=== PATIENT | female | born 1960 | race Caucasian/White ===

== ENCOUNTER → 2016-09-19 | Outpatient (CLI) | payer BC, MEDICARE ==
[2016-09-19 13:59] LABS: HEMATOCRIT 28.1 % (36.0-47.0); HEMOGLOBIN 9.6 g/dL (12.0-15.5); HGB HCT DIFFERENCE 0.7; MEAN CORPUSCULAR HEMOGLOBIN 29.3 pg (27.0-33.4); MEAN CORPUSCULAR VOLUME 86 fl (80-97); RED BLOOD COUNT 3.26 10^6/uL (3.72-5.28); WHITE BLOOD COUNT 7.3 10^3/uL (4.0-10.5)
[2016-09-19 14:05] LABS: APPEARANCE,URINE SLIGHTLY-CLOUDY; BILIRUBIN,URINE NEGATIVE (NEGATIVE); GLUCOSE, URINE 150 mg/dL (NEGATIVE); KETONES,URINE NEGATIVE (NEGATIVE); LEUKOCYTE ESTERASE,URINE NEGATIVE (NEGATIVE); NITRITE,URINE NEGATIVE (NEGATIVE); PROTEIN,URINE 100 mg/dL (NEGATIVE); URINE SPECIFIC GRAVITY 1.016; UROBILINOGEN,URINE NEGATIVE mg/dL (<2.0)
[2016-09-19 14:15] LABS: BLOOD UREA NITROGEN 40 mg/dL (7-20); CALCIUM 9.4 mg/dL (8.4-10.2); CARBON DIOXIDE 15 mmol/L (22-30); CREATININE RESULT 2.63 mg/dL (0.52-1.25); GLUCOSE 257 mg/dL (75-110); POTASSIUM 4.7 mmol/L (3.6-5.0)
[2016-09-19 14:28] LABS: CHLORIDE 108 mmol/L (98-107); SODIUM 143.7 mmol/L (137-145)
[2016-09-19 14:30] LABS: ANION GAP 21 (5-19)
== END ==
LOC: LAB 13:45
PROVIDERS: ATTEND Internal Medicine Nephrology
DX: I12.9 Hypertensive chronic kidney disease with stage 1 through stage 4 chronic kidney disease, or unspecified chronic kidney disease (principal); N18.4 Chronic kidney disease, stage 4 (severe); R80.9 Proteinuria, unspecified; R73.9 Hyperglycemia, unspecified
CPT/HCPCS: 36415; 80048; 81001; 85027

== ENCOUNTER → 2016-11-03 | Outpatient (CLI) | payer MEDICARE ==
[2016-11-03 13:26] LABS: HEMATOCRIT 29.4 % (36.0-47.0); HEMOGLOBIN 9.7 g/dL (12.0-15.5); HGB HCT DIFFERENCE -0.3; MEAN CORPUSCULAR HEMOGLOBIN 28.3 pg (27.0-33.4); MEAN CORPUSCULAR HGB CONC 32.9 g/dL (32.0-36.0); MEAN CORPUSCULAR VOLUME 86 fl (80-97); RED BLOOD COUNT 3.42 10^6/uL (3.72-5.28); WHITE BLOOD COUNT 9.6 10^3/uL (4.0-10.5)
== END ==
LOC: LAB 13:03
PROVIDERS: ATTEND Internal Medicine Nephrology
DX: I12.9 Hypertensive chronic kidney disease with stage 1 through stage 4 chronic kidney disease, or unspecified chronic kidney disease (principal); N18.4 Chronic kidney disease, stage 4 (severe); E11.9 Type 2 diabetes mellitus without complications; R80.9 Proteinuria, unspecified
CPT/HCPCS: 36415; 82728; 83540; 83550; 85027

== ENCOUNTER → 2017-01-23 | Outpatient (CLI) | payer MEDICARE ==
[2017-01-23 11:06] LABS: APPEARANCE,URINE CLEAR; BILIRUBIN,URINE NEGATIVE (NEGATIVE); GLUCOSE, URINE 50 mg/dL (NEGATIVE); KETONES,URINE NEGATIVE (NEGATIVE); LEUKOCYTE ESTERASE,URINE NEGATIVE (NEGATIVE); NITRITE,URINE NEGATIVE (NEGATIVE); PROTEIN,URINE 100 mg/dL (NEGATIVE); URINE SPECIFIC GRAVITY 1.012; UROBILINOGEN,URINE NEGATIVE mg/dL (<2.0)
[2017-01-23 11:18] LABS: HEMOGLOBIN 8.8 g/dL (12.0-15.5); HGB HCT DIFFERENCE 0.4; MEAN CORPUSCULAR HEMOGLOBIN 28.7 pg (27.0-33.4); MEAN CORPUSCULAR VOLUME 85 fl (80-97); RED BLOOD COUNT 3.08 10^6/uL (3.72-5.28); RED CELL DISTRIBUTION WIDTH 14.3 % (11.5-14.0); WHITE BLOOD COUNT 6.1 10^3/uL (4.0-10.5)
[2017-01-23 11:26] LABS: URINE CREATININE 87.8 mg/dL (15-278); URINE PROTEIN 148.1 mg/dL (<12)
[2017-01-23 11:51] LABS: ANION GAP 14 (5-19); BLOOD UREA NITROGEN 30 mg/dL (7-20); CALCIUM 9.3 mg/dL (8.4-10.2); CARBON DIOXIDE 19 mmol/L (22-30); CHLORIDE 109 mmol/L (98-107); CREATININE RESULT 2.48 mg/dL (0.52-1.25); GLUCOSE 189 mg/dL (75-110); POTASSIUM 4.3 mmol/L (3.6-5.0); SODIUM 142.3 mmol/L (137-145)
== END ==
LOC: LAB 10:45
PROVIDERS: ATTEND Internal Medicine Nephrology
DX: N18.4 Chronic kidney disease, stage 4 (severe) (principal); D64.9 Anemia, unspecified; R80.9 Proteinuria, unspecified; I10 Essential (primary) hypertension
CPT/HCPCS: 36415; 80048; 81001; 82570; 84156; 85027

== ENCOUNTER → 2017-03-29 | Outpatient (CLI) | payer MEDICARE ==
[2017-03-29 14:23] LABS: HEMATOCRIT 27.3 % (36.0-47.0); HEMOGLOBIN 9.1 g/dL (12.0-15.5); MEAN CORPUSCULAR HEMOGLOBIN 28.7 pg (27.0-33.4); MEAN CORPUSCULAR HGB CONC 33.3 g/dL (32.0-36.0); MEAN CORPUSCULAR VOLUME 86 fl (80-97); RED BLOOD COUNT 3.16 10^6/uL (3.72-5.28); RED CELL DISTRIBUTION WIDTH 15.1 % (11.5-14.0); WHITE BLOOD COUNT 7.8 10^3/uL (4.0-10.5)
[2017-03-29 14:38] LABS: ALANINE AMINOTRANSFERASE 24 U/L (9-52); ALBUMIN 4.2 g/dL (3.5-5.0); ALKALINE PHOSPHATASE 97 U/L (38-126); ASPARTATE AMINO TRANSFERASE 11 U/L (14-36); BILIRUBIN,DIRECT 0.4 mg/dL (0.0-0.4); BILIRUBIN,TOTAL 0.4 mg/dL (0.2-1.3); BLOOD UREA NITROGEN 33 mg/dL (7-20); CALCIUM 8.9 mg/dL (8.4-10.2); CREATININE RESULT 2.57 mg/dL (0.52-1.25); GLUCOSE 182 mg/dL (75-110); POTASSIUM 4.6 mmol/L (3.6-5.0); TOTAL PROTEIN 8.2 g/dL (6.3-8.2)
[2017-03-29 15:23] LABS: ANION GAP 19 (5-19); CARBON DIOXIDE 15 mmol/L (22-30); CHLORIDE 109 mmol/L (98-107)
== END ==
LOC: LAB 12:16
PROVIDERS: ATTEND Internal Medicine Nephrology
DX: E11.22 Type 2 diabetes mellitus with diabetic chronic kidney disease (principal); N18.4 Chronic kidney disease, stage 4 (severe); D64.9 Anemia, unspecified; R80.9 Proteinuria, unspecified
CPT/HCPCS: 36415; 80053; 82728; 83540; 83550; 85027

== ENCOUNTER 2017-05-04 10:48 | Emergency (ER) | payer MEDICARE ==
[2017-05-04] MEDS ORDERED: ONDANSETRON HCL INJ/PF 4 MG/2 ML SDV IV ONE (11:04)
[2017-05-04] MEDS ORDERED: MORPHINE SULFATE 10 MG/ML INJ IV ONE ×3 (11:05→14:32)
--- NOTE | 2017-05-04 11:09 | ER Document Report ---
ED Medical Screen (RME) - General Chief Complaint: Abdominal Pain Stated Complaint: ABDOMINAL PAIN Time Seen by Provider: 05/04/17 11:04 Notes: Patient is complaining of pain of the right abdomen which awakened her this morning around 4 AM. It has been constant and radiates around into the right back and flank region. She has not had any appetite or eaten any substantive amount of food since yesterday around lunchtime. No nausea, vomiting, or diarrhea. Last bowel movement was yesterday morning. No blood in stools. Denies UTI symptoms. Not aware of any fever. Patient had an episode of similar pain a couple of months ago, but it only lasted a very short time and went away and did not recur. Patient has no history of diverticulitis, colitis, regional enteritis, Crohn's disease, etc. Patient had surgery 4 years ago for bowel resection secondary to intussusception. PMH: Cholecystectomy. Still has her appendix. Has an umbilical hernia. TRAVEL OUTSIDE OF THE [place] IN LAST 30 DAYS: No - Related Data Allergies/Adverse Reactions: phenobarbital Allergy (Verified 05/04/17 10:57) Past Medical History - Social History Chew tobacco use (# tins/day): No Frequency of alcohol use: None Drug Abuse: None - Past Medical History Cardiac Medical History: Reports: Hx Hypercholesterolemia Endocrine Medical History: Reports: Hx Diabetes Mellitus Type 2 Renal/ Medical History: Denies: Hx Peritoneal Dialysis Past Surgical History: Reports: Hx Bowel Surgery - left side, Hx Cholecystectomy Physical Exam - Vital signs Vitals: Temp Pulse Resp BP Pulse Ox 97.2 F 91 22 H 180/84 H 100 05/04/17 10:54 05/04/17 10:54 05/04/17 10:54 05/04/17 10:54 05/04/17 10:54 Course - Vital Signs Vital signs: Temp Pulse Resp BP Pulse Ox 97.2 F 91 22 H 180/84 H 100 05/04/17 10:54 05/04/17 10:54 05/04/17 10:54 05/04/17 10:54 05/04/17 10:54
[2017-05-04 11:31] LABS: HEMATOCRIT 39.1 % (36.0-47.0); HEMOGLOBIN 13.2 g/dL (12.0-15.5); HGB HCT DIFFERENCE 0.5; MEAN CORPUSCULAR HEMOGLOBIN 29.4 pg (27.0-33.4); MEAN CORPUSCULAR HGB CONC 33.7 g/dL (32.0-36.0); MEAN CORPUSCULAR VOLUME 87 fl (80-97); RED BLOOD COUNT 4.49 10^6/uL (3.72-5.28); RED CELL DISTRIBUTION WIDTH 14.4 % (11.5-14.0)
[2017-05-04 11:32] LABS: APPEARANCE,URINE CLEAR; BILIRUBIN,URINE NEGATIVE (NEGATIVE); GLUCOSE, URINE >=500 mg/dL (NEGATIVE); KETONES,URINE NEGATIVE (NEGATIVE); LEUKOCYTE ESTERASE,URINE NEGATIVE (NEGATIVE); NITRITE,URINE NEGATIVE (NEGATIVE); PROTEIN,URINE >=500 mg/dL (NEGATIVE); URINE SPECIFIC GRAVITY 1.024; UROBILINOGEN,URINE NEGATIVE mg/dL (<2.0)
--- NOTE | 2017-05-04 11:38 | ER Document Report ---
ED GI/ - General Chief Complaint: Abdominal Pain Stated Complaint: ABDOMINAL PAIN Time Seen by Provider: 05/04/17 11:04 Mode of Arrival: Ambulatory Information source: Patient TRAVEL OUTSIDE OF THE [place] IN LAST 30 DAYS: No - HPI Patient complains to provider of: Abdominal pain Onset: This morning Timing/Duration: Sudden Quality of pain: Sharp Severity at maximum: Moderate Severity in ED: Moderate Pain Level: 3 Location: Right flank Associated symptoms: Nausea Exacerbated by: Denies Relieved by: Denies Similar symptoms previously: Yes Recently seen / treated by doctor: No Notes: 05/04/17 11:36 Patient is a 56 year ole female complaining of pain of the right abdomen which awakened her this morning around 4 AM. It has been constant and radiates around into the right back and flank region. She has not had any appetite or eaten any substantive amount of food since yesterday around lunchtime. She reports nausea but no vomiting or diarrhea. Last bowel movement was yesterday morning and normal. No blood in stools. Denies urinary or vaginal symptoms. Not aware of any fever. Patient had an episode of similar pain a couple of months ago, but it only lasted a very short time and went away and did not recur. Patient has no history of diverticulitis, colitis, regional enteritis, Crohn's disease, etc. Patient had surgery 4 years ago for bowel resection secondary to intussusception. PMH: Cholecystectomy. Still has her appendix. Has an umbilical hernia. - Related Data Allergies/Adverse Reactions: phenobarbital Allergy (Verified 05/04/17 10:57) Past Medical History - General Information source: Patient - Social History Smoking Status: Never Smoker Chew tobacco use (# tins/day): No Frequency of alcohol use: None Drug Abuse: None Family History: Reviewed & Not Pertinent - Past Medical History Cardiac Medical History: Reports: Hx Hypercholesterolemia Endocrine Medical History: Reports: Hx Diabetes Mellitus Type 2 Renal/ Medical History: Denies: Hx Peritoneal Dialysis Past Surgical History: Reports: Hx Bowel Surgery - left side, Hx Cholecystectomy Review of Systems - Review of Systems Constitutional: No symptoms reported EENT: No symptoms reported Cardiovascular: No symptoms reported Respiratory: No symptoms reported Gastrointestinal: See HPI Genitourinary: No symptoms reported Female Genitourinary: No symptoms reported Musculoskeletal: No symptoms reported Skin: No symptoms reported Hematologic/Lymphatic: No symptoms reported Neurological/Psychological: No symptoms reported -: Yes All other systems reviewed and negative Physical Exam - Vital signs Vitals: Temp Pulse Resp BP Pulse Ox 97.2 F 91 22 H 180/84 H 100 05/04/17 10:54 05/04/17 10:54 05/04/17 10:54 05/04/17 10:54 05/04/17 10:54 Interpretation: Normal - General General appearance: Appears well, Alert - HEENT Head: Normocephalic, Atraumatic Eyes: Normal Pupils: PERRL - Respiratory Respiratory status: No respiratory distress Chest status: Nontender Breath sounds: Normal Chest palpation: Normal - Cardiovascular Rhythm: Regular Heart sounds: Normal auscultation Murmur: No - Abdominal Inspection: Normal, Other - midline scar, reducible large umbilicaL hernia Distension: Distended Bowel sounds: Normal Tenderness: Tender - right upper quadrant Organomegaly: No organomegaly - Back Back: Normal, Nontender - Extremities General upper extremity: Normal inspection, Nontender, Normal color, Normal ROM , Normal temperature General lower extremity: Normal inspection, Nontender, Normal color, Normal ROM , Normal temperature, Normal weight bearing. No: Jose A's sign - Neurological Neuro grossly intact: Yes Cognition: Normal Orientation: AAOx4 [place] Coma Scale Eye Opening: Spontaneous Marilyn Coma Scale Verbal: Oriented [place] Coma Scale Motor: Obeys Commands Marilyn Coma Scale Total: 15 Speech: Normal Motor strength normal: LUE, RUE, LLE, RLE Sensory: Normal - Psychological Associated symptoms: Normal affect, Normal mood - Skin Skin Temperature: Warm Skin Moisture: Dry Skin Color: Normal Course - Re-evaluation Re-evalutation: 05/04/17 17:31 Patient was discussed with the hospitalist at [facility] Dr. Benny Mcnamara, who graciously accepts patient for transfer, however the transfer center states they are at surge capacity at the moment and do not anticipate a bed available immediately, however hopeful for one later this evening 05/04/17 20:27 Patient resting comfortably on the stretcher, no complaints at present time, vital signs are stable, she remains stable for transport to tertiary care center - Vital Signs Vital signs: Temp Pulse Resp BP Pulse Ox 97.5 F 87 18 174/74 H 100 05/04/17 14:26 05/04/17 14:26 05/04/17 14:26 05/04/17 14:26 05/04/17 14:26 - Laboratory Result Diagrams: 05/04/17 11:09 05/04/17 11:09 Laboratory results interpreted by me: 05/04/17 05/04/17 05/04/17 11:09 11:09 11:09 WBC 32.4 H* RDW 14.4 H Plt Count 492 H Seg Neuts % (Manual) 87 H Lymphocytes % (Manual) 7 L Abs Neuts (Manual) 28.2 H Abs Monocytes (Manual) 1.9 H VBG pH VBG HCO3 Sodium 134.0 L Potassium 5.8 H Chloride 97 L Carbon Dioxide 15 L Anion Gap 22 H BUN 44 H Creatinine 2.96 H Est GFR ( Amer) 20 L Est GFR (Non-Af Amer) 16 L Glucose 581 H* POC Glucose Lactic Acid Direct Bilirubin 0.5 H Alkaline Phosphatase 131 H Total Protein 9.6 H Lipase 52888.2 H Urine Protein >=500 H Urine Glucose (UA) >=500 H Urine Blood SMALL H 05/04/17 05/04/17 05/04/17 18:55 19:30 19:30 WBC RDW Plt Count Seg Neuts % (Manual) Lymphocytes % (Manual) Abs Neuts (Manual) Abs Monocytes (Manual) VBG pH 7.13 L* VBG HCO3 14.1 L Sodium Potassium Chloride Carbon Dioxide Anion Gap BUN Creatinine Est GFR ( Amer) Est GFR (Non-Af Amer) Glucose POC Glucose 411 H* Lactic Acid 3.1 H Direct Bilirubin Alkaline Phosphatase Total Protein Lipase Urine Protein Urine Glucose (UA) Urine Blood - Diagnostic Test Radiology reviewed: Image reviewed, Reports reviewed - EKG Interpretation by Me EKG shows normal: Sinus rhythm Rate: Normal Rhythm: NSR Carmen/QRS: LBBB Additional EKG results interpreted by me: 05/04/17 13:14 peaked T waves Critical Care Note - Critical Care Note Total time excluding time spent on procedures (mins): 75 Comments: Patient with profound leukocytosis, obstructive uropathy, acute renal failure, signs of sepsis, requiring transfer to tertiary care center Discharge - Discharge Clinical Impression: Obstructive uropathy Sepsis Qualifiers: Sepsis type: sepsis due to unspecified organism Qualified Code(s): A41.9 - Sepsis, unspecified organism Pancreatitis, acute Qualifiers: Pancreatitis type: unspecified pancreatitis type Acute pancreatitis complication: no infection or necrosis Qualified Code(s): K85.90 - Acute pancreatitis without necrosis or infection, unspecified Acute renal failure Qualifiers: Acute renal failure type: unspecified Qualified Code(s): N17.9 - Acute kidney failure, unspecified DKA (diabetic ketoacidoses) Qualifiers: Diabetes mellitus type: type 2 Diabetes mellitus complication detail: without coma Qualified Code(s): E13.10 - Other specified diabetes mellitus with ketoacidosis without coma Condition: Serious Disposition: [facility] Referrals: ELIZABETH ROMAN PA-C [Primary Care Provider] - Follow up as needed
[2017-05-04 11:44] LABS: ALANINE AMINOTRANSFERASE 18 U/L (9-52); ALBUMIN 4.6 g/dL (3.5-5.0); ALKALINE PHOSPHATASE 131 U/L (38-126); ASPARTATE AMINO TRANSFERASE 23 U/L (14-36); BILIRUBIN,DIRECT 0.5 mg/dL (0.0-0.4); BILIRUBIN,TOTAL 0.5 mg/dL (0.2-1.3); BLOOD UREA NITROGEN 44 mg/dL (7-20); CALCIUM 10.2 mg/dL (8.4-10.2); CHLORIDE 97 mmol/L (98-107); CREATININE RESULT 2.96 mg/dL (0.52-1.25); POTASSIUM 5.8 mmol/L (3.6-5.0); TOTAL PROTEIN 9.6 g/dL (6.3-8.2)
[2017-05-04 11:56] LABS: CARBON DIOXIDE 15 mmol/L (22-30)
[2017-05-04] MEDS ORDERED: NORMAL SALINE 1000 ML 1,000 ML IV PRN ×3 (12:01→14:47)
[2017-05-04 12:02] LABS: BASOPHILS % (MANUAL) 0 % (0-2); EOSINOPHILS % (MANUAL) 0 % (0-6); LYMPHOCYTES % (MANUAL) 7 % (13-45); TOTAL CELLS COUNTED 100
[2017-05-04 12:06] LABS: ANION GAP 22 (5-19); LIPASE 18011.2 U/L (23-300)
[2017-05-04 12:07] LABS: ANISOCYTOSIS SLIGHT
[2017-05-04 12:08] LABS: GLUCOSE 581 mg/dL (75-110)
[2017-05-04] MEDS ORDERED: PIPERACILLIN/TAZOBACTAM 3.375 GM VIAL IV ONE (12:14)
[2017-05-04] MEDS ORDERED: DEXTROSE 50%-WATER 25 GM/50 ML DISP.SYRIN IV ONE (13:13)
[2017-05-04] MEDS ORDERED: CALCIUM GLUCONATE 1000 MG/10 ML INJ IV ONE (13:13)
[2017-05-04] MEDS ORDERED: INSULIN REG, HUMAN 100 UNIT/ML 3 ML VIAL (PYX) IV ONE (13:13)
--- NOTE | 2017-05-04 13:53 | EKG REPORT ---
SEVERITY:- ABNORMAL ECG - SINUS RHYTHM PROBABLE LEFT ATRIAL ABNORMALITY LEFT BUNDLE BRANCH BLOCK : Confirmed by: Sander Jiménez MD 04-May-2017 13:53:25
[2017-05-04 14:28] LABS: PROTHROMBIN TIME 13.8 SEC (11.4-15.4)
[2017-05-04 14:29] LABS: PARTIAL THROMBOPLASTIN TIME 29.4 SEC (23.5-35.8)
[2017-05-04 14:46] LABS: WHITE BLOOD COUNT 32.4 10^3/uL (4.0-10.5)
[2017-05-04] MEDS ORDERED: NORMAL SALINE 100 ML with INSULIN REGULAR, HUMAN 100 UNIT IV PRN ×2 (17:00)
[2017-05-04] MEDS ORDERED: DEXTROSE 40% GEL 15 GM TUBE PO PRN ×2 (17:00)
[2017-05-04] MEDS ORDERED: GLUCAGON,HUMAN RECOMB 1 MG INJ IM PRN (17:00)
[2017-05-04] MEDS ORDERED: DEXTROSE 50%-WATER 25 GM/50 ML DISP.SYRIN IV PRN ×2 (17:00)
[2017-05-04] MEDS ORDERED: HYDROMORPHONE HCL INJ/PF 2 MG/ML AMPULE IV ONE ×2 (17:40→20:38)
[2017-05-04] MEDS ORDERED: INSULIN REG, HUMAN 100 UNIT/ML 3 ML VIAL (PYX) ONE (17:51)
[2017-05-04 19:50] LABS: VENOUS BLOOD BASE EXCESS -14.6 mmol/L; VENOUS BLOOD HCO3 14.1 mmol/L (20-32); VENOUS BLOOD PCO2 43.4 mmHg (35-63)
[2017-05-04 19:52] LABS: VENOUS BLOOD PH 7.13 (7.30-7.42)
[2017-05-04 23:25] VITALS: BP 176/78
--- NOTE | 2017-05-05 15:03 | RADIOLOGY REPORT (SQ) ---
EXAM DESCRIPTION: CHEST PA/LAT COMPLETED DATE/TIME: 05/04/2017, 1251 hours REASON FOR STUDY: Chest pain COMPARISON: No previous TECHNIQUE: PA and lateral chest LIMITATIONS: None FINDINGS: No focal pulmonary infiltrates. No pleural effusions. No pneumothorax. Borderline cardiomegaly. No hilar enlargement. Degenerative changes thoracic spine, bones osteoporotic. Clips right upper quadrant post cholecystectomy. IMPRESSION: No acute findings
--- NOTE | 2017-05-09 00:02 | RADIOLOGY REPORT (SQ) ---
EXAM DESCRIPTION: CT abdomen pelvis with oral contrast only COMPLETED DATE/TIME: 05/04/2017, 1348 hours REASON FOR STUDY: Right sided abdominal pain radiates to right flank COMPARISON: 11/17/2015 CT abdomen pelvis TECHNIQUE: CT scanning of the abdomen pelvis was performed without IV contrast. Patient drank oral contrast. Images were reviewed at lung bone and soft tissue windows with sagittal and coronal recons tructions. RADIATION DOSE: 9.8 mGy LIMITATIONS: None. FINDINGS: On axial image 77, and coronal image 49, a 4 to 5 mm calculus is present causing moderate to marked right hydronephrosis and hydroureter. There is right perinephric stranding. Tiny intraren al upper and lower pole less than 2 mm stones are present in the right kidney. This report was masr d to Dr. Dickens in the emergency room. Remainder of the study demonstrates that the lung bases are clear. Liver is unremarkable. Post chol ecystectomy. No splenomegaly. Adrenal glands, pancreas, left kidney unremarkable. Atherosclerotic aortoiliac calcification without aneurysm. No retroperitoneal adenopathy. Trace free pelvic fluid. Small postmenopausal female pelvic organs. There is oral contrast throughout the gastrointestinal tract without evidence of bowel obstruction. Appendix not identified. Sagittal and coronal reconstructions and bone windows demonstrate degenerative disc changes lower lum bar spine. IMPRESSION: Moderate to marked right hydronephrosis and hydroureter related to a right distal ureter al stone at the ureterovesical junction, 4 to 5 mm in diameter. TECHNICAL DOCUMENTATION: JOB ID: [id number] [employer]- All Rights Reserved
== END 2017-05-04 21:55 | disposition short-term general hospital (02) ==
LOC: ER 10:48
DX: A41.9 Sepsis, unspecified organism (principal); N13.2 Hydronephrosis with renal and ureteral calculous obstruction; K85.90 Acute pancreatitis without necrosis or infection, unspecified; N17.9 Acute kidney failure, unspecified; E13.10 Other specified diabetes mellitus with ketoacidosis without coma; K42.9 Umbilical hernia without obstruction or gangrene; I44.7 Left bundle-branch block, unspecified; R11.0 Nausea; Z90.49 Acquired absence of other specified parts of digestive tract; Z87.19 Personal history of other diseases of the digestive system; Z88.8 Allergy status to other drugs, medicaments and biological substances
CPT/HCPCS: 93005; 96376; 99285; 96361; 96375; 96365; 96367; 36415; 87040; 82962; 83690; 85025; 85610; 85730; 80053; 81001; 82803; 83605; 71020; 74176; 93010; J0610; J3490; J2270; J1170; A9270; J2405; J7030; J2543; J1815

== ENCOUNTER → 2017-05-31 | Outpatient (CLI) | payer MEDICARE ==
[2017-05-31 10:25] LABS: HEMATOCRIT 27.6 % (36.0-47.0); HEMOGLOBIN 9.3 g/dL (12.0-15.5); HGB HCT DIFFERENCE 0.3; MEAN CORPUSCULAR HEMOGLOBIN 29.2 pg (27.0-33.4); MEAN CORPUSCULAR HGB CONC 33.6 g/dL (32.0-36.0); MEAN CORPUSCULAR VOLUME 87 fl (80-97); RED BLOOD COUNT 3.18 10^6/uL (3.72-5.28); RED CELL DISTRIBUTION WIDTH 13.8 % (11.5-14.0); WHITE BLOOD COUNT 7.9 10^3/uL (4.0-10.5)
[2017-05-31 10:52] LABS: ANION GAP 16 (5-19); BLOOD UREA NITROGEN 35 mg/dL (7-20); CALCIUM 9.4 mg/dL (8.4-10.2); CARBON DIOXIDE 17 mmol/L (22-30); CHLORIDE 101 mmol/L (98-107); CREATININE RESULT 2.68 mg/dL (0.52-1.25); GLUCOSE 381 mg/dL (75-110); PHOSPHORUS 4.7 mg/dL (2.5-4.5); SODIUM 133.7 mmol/L (137-145)
== END ==
LOC: LAB 09:41
PROVIDERS: ATTEND Internal Medicine Nephrology
DX: I12.9 Hypertensive chronic kidney disease with stage 1 through stage 4 chronic kidney disease, or unspecified chronic kidney disease (principal); N18.4 Chronic kidney disease, stage 4 (severe); R80.9 Proteinuria, unspecified; D64.9 Anemia, unspecified; E11.9 Type 2 diabetes mellitus without complications
CPT/HCPCS: 36415; 80048; 82728; 83540; 83550; 83970; 84100; 85027

== ENCOUNTER → 2017-08-25 | Outpatient (CLI) | payer MEDICARE ==
[2017-08-25 11:35] LABS: HEMATOCRIT 28.9 % (36.0-47.0); HEMOGLOBIN 9.6 g/dL (12.0-15.5); HGB HCT DIFFERENCE -0.1; MEAN CORPUSCULAR HEMOGLOBIN 29.6 pg (27.0-33.4); MEAN CORPUSCULAR HGB CONC 33.2 g/dL (32.0-36.0); MEAN CORPUSCULAR VOLUME 89 fl (80-97); RED BLOOD COUNT 3.24 10^6/uL (3.72-5.28); RED CELL DISTRIBUTION WIDTH 15.1 % (11.5-14.0); WHITE BLOOD COUNT 10.8 10^3/uL (4.0-10.5)
[2017-08-25 11:58] LABS: BLOOD UREA NITROGEN 24 mg/dL (7-20); CALCIUM 8.9 mg/dL (8.4-10.2); CARBON DIOXIDE 15 mmol/L (22-30); CHLORIDE 108 mmol/L (98-107); CREATININE RESULT 2.08 mg/dL (0.52-1.25); GLUCOSE 193 mg/dL (75-110); PHOSPHORUS 3.3 mg/dL (2.5-4.5); POTASSIUM 4.4 mmol/L (3.6-5.0); SODIUM 142.8 mmol/L (137-145)
[2017-08-25 12:03] LABS: ANION GAP 20 (5-19)
[2017-08-25 14:51] LABS: APPEARANCE,URINE SLIGHTLY-CLOUDY; BILIRUBIN,URINE NEGATIVE (NEGATIVE); GLUCOSE, URINE 50 mg/dL (NEGATIVE); KETONES,URINE NEGATIVE (NEGATIVE); LEUKOCYTE ESTERASE,URINE NEGATIVE (NEGATIVE); NITRITE,URINE NEGATIVE (NEGATIVE); PROTEIN,URINE 100 mg/dL (NEGATIVE); URINE SPECIFIC GRAVITY 1.013; UROBILINOGEN,URINE NEGATIVE mg/dL (<2.0)
[2017-08-25 15:03] LABS: URINE PROTEIN 191.1 mg/dL (<12)
== END ==
LOC: LAB 11:15
PROVIDERS: ATTEND Internal Medicine Nephrology
DX: I12.9 Hypertensive chronic kidney disease with stage 1 through stage 4 chronic kidney disease, or unspecified chronic kidney disease (principal); N18.4 Chronic kidney disease, stage 4 (severe); D64.9 Anemia, unspecified; E11.9 Type 2 diabetes mellitus without complications; R80.9 Proteinuria, unspecified
CPT/HCPCS: 36415; 80048; 81001; 82570; 83970; 84100; 84156; 85027

== ENCOUNTER → 2017-11-17 | Outpatient (CLI) | payer MEDICARE ==
[2017-11-17 10:24] LABS: HEMATOCRIT 28.8 % (36.0-47.0); HEMOGLOBIN 9.4 g/dL (12.0-15.5); MEAN CORPUSCULAR HEMOGLOBIN 28.6 pg (27.0-33.4); MEAN CORPUSCULAR HGB CONC 32.7 g/dL (32.0-36.0); MEAN CORPUSCULAR VOLUME 87 fl (80-97); PLATELET COUNT 336 10^3/uL (150-450); RED BLOOD COUNT 3.29 10^6/uL (3.72-5.28); RED CELL DISTRIBUTION WIDTH 17.1 % (11.5-14.0); WHITE BLOOD COUNT 7.6 10^3/uL (4.0-10.5)
[2017-11-17 10:50] LABS: ANION GAP 17 (5-19); BLOOD UREA NITROGEN 32 mg/dL (7-20); CALCIUM 9.3 mg/dL (8.4-10.2); CARBON DIOXIDE 13 mmol/L (22-30); CHLORIDE 111 mmol/L (98-107); GLUCOSE 243 mg/dL (75-110); PHOSPHORUS 3.8 mg/dL (2.5-4.5); SODIUM 141.1 mmol/L (137-145)
== END ==
LOC: LAB 10:11
PROVIDERS: ATTEND Internal Medicine Nephrology
DX: N18.4 Chronic kidney disease, stage 4 (severe) (principal); R80.9 Proteinuria, unspecified; D64.9 Anemia, unspecified
CPT/HCPCS: 36415; 80048; 82728; 83540; 83550; 83970; 84100; 85027

== ENCOUNTER → 2017-12-29 | Outpatient (CLI) | payer MEDICARE ==
[2017-12-29 09:03] LABS: HEMATOCRIT 31.7 % (36.0-47.0); HEMOGLOBIN 10.5 g/dL (12.0-15.5); MEAN CORPUSCULAR HEMOGLOBIN 28.6 pg (27.0-33.4); MEAN CORPUSCULAR HGB CONC 33.1 g/dL (32.0-36.0); MEAN CORPUSCULAR VOLUME 86 fl (80-97); PLATELET COUNT 335 10^3/uL (150-450); RED BLOOD COUNT 3.66 10^6/uL (3.72-5.28); RED CELL DISTRIBUTION WIDTH 15.8 % (11.5-14.0); WHITE BLOOD COUNT 14.4 10^3/uL (4.0-10.5)
[2017-12-29 09:24] LABS: ANION GAP 17 (5-19); BLOOD UREA NITROGEN 36 mg/dL (7-20); CALCIUM 9.4 mg/dL (8.4-10.2); CARBON DIOXIDE 19 mmol/L (22-30); CHLORIDE 102 mmol/L (98-107); PHOSPHORUS 3.5 mg/dL (2.5-4.5); POTASSIUM 4.3 mmol/L (3.6-5.0); SODIUM 138.2 mmol/L (137-145)
[2017-12-29 09:36] LABS: GLUCOSE 416 mg/dL (75-110)
== END ==
LOC: LAB 08:49
PROVIDERS: ATTEND Internal Medicine Nephrology
DX: E11.22 Type 2 diabetes mellitus with diabetic chronic kidney disease (principal); I12.9 Hypertensive chronic kidney disease with stage 1 through stage 4 chronic kidney disease, or unspecified chronic kidney disease; N18.5 Chronic kidney disease, stage 5; R80.9 Proteinuria, unspecified; E87.2 Acidosis; N25.9 Disorder resulting from impaired renal tubular function, unspecified
CPT/HCPCS: 36415; 80048; 83970; 84100; 85027

== ENCOUNTER → 2018-03-22 | Outpatient (CLI) | payer MEDICARE ==
[2018-03-22 09:32] LABS: HEMATOCRIT 25.9 % (36.0-47.0); HEMOGLOBIN 8.8 g/dL (12.0-15.5); MEAN CORPUSCULAR HEMOGLOBIN 28.8 pg (27.0-33.4); MEAN CORPUSCULAR HGB CONC 34.2 g/dL (32.0-36.0); MEAN CORPUSCULAR VOLUME 84 fl (80-97); PLATELET COUNT 312 10^3/uL (150-450); RED BLOOD COUNT 3.06 10^6/uL (3.72-5.28); RED CELL DISTRIBUTION WIDTH 15.1 % (11.5-14.0); WHITE BLOOD COUNT 10.1 10^3/uL (4.0-10.5)
[2018-03-22 09:35] LABS: APPEARANCE,URINE CLEAR; BILIRUBIN,URINE NEGATIVE (NEGATIVE); COLOR,URINE STRAW; GLUCOSE, URINE >=500 mg/dL (NEGATIVE); KETONES,URINE NEGATIVE (NEGATIVE); LEUKOCYTE ESTERASE,URINE MODERATE (NEGATIVE); NITRITE,URINE NEGATIVE (NEGATIVE); PROTEIN,URINE 100 mg/dL (NEGATIVE); URINE SPECIFIC GRAVITY 1.013; UROBILINOGEN,URINE NEGATIVE mg/dL (<2.0)
[2018-03-22 09:51] LABS: ANION GAP 16 (5-19); BLOOD UREA NITROGEN 36 mg/dL (7-20); CALCIUM 9.5 mg/dL (8.4-10.2); CARBON DIOXIDE 21 mmol/L (22-30); CHLORIDE 102 mmol/L (98-107); GLUCOSE 367 mg/dL (75-110); PHOSPHORUS 3.7 mg/dL (2.5-4.5); POTASSIUM 4.6 mmol/L (3.6-5.0); SODIUM 139.2 mmol/L (137-145)
== END ==
LOC: LAB 09:10
PROVIDERS: ATTEND Internal Medicine Nephrology
DX: I12.9 Hypertensive chronic kidney disease with stage 1 through stage 4 chronic kidney disease, or unspecified chronic kidney disease (principal); N18.4 Chronic kidney disease, stage 4 (severe); E11.9 Type 2 diabetes mellitus without complications; R80.9 Proteinuria, unspecified; N25.0 Renal osteodystrophy
CPT/HCPCS: 36415; 80048; 81001; 83970; 84100; 85027

== ENCOUNTER → 2018-04-03 | Outpatient (CLI) | payer MEDICARE ==
[2018-04-03 09:41] LABS: IRON(TIBC) 66.5 ug/dL (37-170)
[2018-04-03 10:32] LABS: HEMATOCRIT 24.6 % (36.0-47.0); HEMOGLOBIN 8.2 g/dL (12.0-15.5); MEAN CORPUSCULAR HEMOGLOBIN 28.6 pg (27.0-33.4); MEAN CORPUSCULAR HGB CONC 33.4 g/dL (32.0-36.0); MEAN CORPUSCULAR VOLUME 86 fl (80-97); PLATELET COUNT 301 10^3/uL (150-450); RED BLOOD COUNT 2.87 10^6/uL (3.72-5.28); RED CELL DISTRIBUTION WIDTH 15.2 % (11.5-14.0); WHITE BLOOD COUNT 8.7 10^3/uL (4.0-10.5)
== END ==
LOC: LAB 09:03
PROVIDERS: ATTEND Internal Medicine Nephrology
DX: E11.22 Type 2 diabetes mellitus with diabetic chronic kidney disease (principal); N18.4 Chronic kidney disease, stage 4 (severe); D64.9 Anemia, unspecified
CPT/HCPCS: 36415; 82728; 83036; 83540; 83550; 85027

== ENCOUNTER 2018-04-26 12:38 | Outpatient (CLI) | payer MEDICARE ==
[~2018-04-26 12:38] MED LIST: FERRIC CARBOXYMALTOSE 750 MG in NORMAL SALINE 250 ML IV PRN; FERUMOXYTOL 510 MG in NORMAL SALINE 100 ML IV PRN; NORMAL SALINE 250 ML IV PRN
[2018-04-26 14:25] VITALS: BP 128/72
== END 2018-04-26 14:30 | disposition home or self-care (01) ==
LOC: II 12:38 → 5TH 13:24 → II 14:30
PROVIDERS: ATTEND Internal Medicine Nephrology
PROC: 3E033GC Introduction of Other Therapeutic Substance into Peripheral Vein, Percutaneous Approach (ICD-10-PCS; principal; 2018-04-26)
DX: Z76.89 Persons encountering health services in other specified circumstances (principal)
CPT/HCPCS: 96365; J7050; J1439; 96367; Q0138

== ENCOUNTER → 2018-05-14 | Outpatient (CLI) | payer MEDICARE ==
--- NOTE | 2018-05-14 15:48 | RADIOLOGY REPORT (SQ) ---
EXAM DESCRIPTION: BARIUM SWALLOW ESOPHAGUS COMPLETED DATE/TIME: 05/14/2018 10:09 am REASON FOR STUDY: DYSPHAGIA R13.10 DYSPHAGIA, UNSPECIFIED K21.9 GASTRO-ESOPHAGEAL REFLUX DISEASE W ITHOUT ESOPHAGITIS COMPARISON: None. TECHNIQUE: Under fluoroscopic guidance, patient ingested effervescent granules followed by thick and thin barium. Fluoroscopic spot images and routine radiographic images acquired and stored on PACS. 12 MM BARIUM TABLET GIVEN: The patient swallowed a 12 mm barium tablet which passed through the esoph antonietta into the stomach with minimal delay at the aortic knob. LIMITATIONS: None. FLUOROSCOPY TIME: FLUORO TIME: 2.52 minutes 7 images saved to PACS. FINDINGS: NEUROMUSCULAR COORDINATION OF SWALLOW: Normal. No aspiration. ESOPHAGEAL MOTILITY: Mild tertiary contractions seen in the distal esophagus. ESOPHAGEAL MUCOSA: Normal mucosa without masses or ulceration. GASTRO-ESOPHAGEAL JUNCTION: No hiatal hernia or reflux. NON-GI TRACT STRUCTURES: No significant finding. OTHER: No other significant finding. IMPRESSION: NORMAL DOUBLE CONTRAST BARIUM SWALLOW. RECOMMENDATION: None COMMENT: None Quality ID [id number]: Final reports for procedures using fluoroscopy that document radiation exposure kenneth petty, or exposure time and number of fluorographic images (if radiation exposure indices are not avail able) TECHNICAL DOCUMENTATION: JOB ID: [id number] [employer]- All Rights Reserved Reading location - IP/workstation name: [email or web address] [id number]
== END ==
LOC: RAD 08:57
PROVIDERS: ATTEND Internal Medicine Gastroenterology
DX: R13.10 Dysphagia, unspecified (principal); K21.9 Gastro-esophageal reflux disease without esophagitis
CPT/HCPCS: 74220

== ENCOUNTER → 2018-07-11 | Outpatient (CLI) | payer MEDICARE ==
[2018-07-11 11:19] LABS: HEMATOCRIT 28.9 % (36.0-47.0); HEMOGLOBIN 9.8 g/dL (12.0-15.5); MEAN CORPUSCULAR HEMOGLOBIN 29.6 pg (27.0-33.4); MEAN CORPUSCULAR HGB CONC 33.9 g/dL (32.0-36.0); MEAN CORPUSCULAR VOLUME 87 fl (80-97); PLATELET COUNT 336 10^3/uL (150-450); RED BLOOD COUNT 3.32 10^6/uL (3.72-5.28); RED CELL DISTRIBUTION WIDTH 15.5 % (11.5-14.0); WHITE BLOOD COUNT 7.9 10^3/uL (4.0-10.5)
[2018-07-11 11:44] LABS: ANION GAP 12 (5-19); BLOOD UREA NITROGEN 28 mg/dL (7-20); CALCIUM 9.4 mg/dL (8.4-10.2); CARBON DIOXIDE 21 mmol/L (22-30); CHLORIDE 108 mmol/L (98-107); GLUCOSE 132 mg/dL (75-110); IRON(TIBC) 45.6 ug/dL (37-170); POTASSIUM 4.6 mmol/L (3.6-5.0); SODIUM 140.7 mmol/L (137-145)
== END ==
LOC: LAB 10:58
PROVIDERS: ATTEND Internal Medicine Nephrology
DX: E11.22 Type 2 diabetes mellitus with diabetic chronic kidney disease (principal); N18.4 Chronic kidney disease, stage 4 (severe); R80.9 Proteinuria, unspecified; E87.5 Hyperkalemia; D64.9 Anemia, unspecified
CPT/HCPCS: 36415; 80048; 82728; 83540; 83550; 83970; 84100; 85027

== ENCOUNTER 2018-07-24 09:09 | Outpatient (CLI) | payer MEDICARE ==
[~2018-07-24 09:09] MED LIST changes: -FERUMOXYTOL 510 MG in NORMAL SALINE 100 ML IV PRN; -NORMAL SALINE 250 ML IV PRN
[2018-07-24 09:38] VITALS: BP 151/68
== END 2018-07-24 11:18 | disposition home or self-care (01) ==
LOC: II 09:09 → 5TH 09:21 → II 11:18
PROVIDERS: ATTEND Internal Medicine Nephrology
PROC: 3E033GC Introduction of Other Therapeutic Substance into Peripheral Vein, Percutaneous Approach (ICD-10-PCS; principal; 2018-07-24)
DX: D50.8 Other iron deficiency anemias (principal); N18.4 Chronic kidney disease, stage 4 (severe)
CPT/HCPCS: 96365; J7050; J1439

== ENCOUNTER 2018-09-29 12:11 | Inpatient (IN) | payer MEDICARE ==
[2018-09-29] MEDS ORDERED: CALCIUM GLUCONATE 1000 MG/10 ML INJ IV ONE (12:31)
[2018-09-29] MEDS ORDERED: NORMAL SALINE 1000 ML 1,000 ML IV ONE (12:33)
[2018-09-29 12:57] LABS: HEMATOCRIT 32.3 % (36.0-47.0); HEMOGLOBIN 10.5 g/dL (12.0-15.5); MEAN CORPUSCULAR HEMOGLOBIN 30.7 pg (27.0-33.4); MEAN CORPUSCULAR HGB CONC 32.5 g/dL (32.0-36.0); MEAN CORPUSCULAR VOLUME 95 fl (80-97); PLATELET COUNT 442 10^3/uL (150-450); RED BLOOD COUNT 3.42 10^6/uL (3.72-5.28); RED CELL DISTRIBUTION WIDTH 16.5 % (11.5-14.0); WHITE BLOOD COUNT 13.4 10^3/uL (4.0-10.5)
[2018-09-29 13:07] LABS: ALANINE AMINOTRANSFERASE 22 U/L (9-52); ALBUMIN 4.4 g/dL (3.5-5.0); ALKALINE PHOSPHATASE 105 U/L (38-126); ANION GAP 14 (5-19); ASPARTATE AMINO TRANSFERASE 18 U/L (14-36); BILIRUBIN,DIRECT 0.3 mg/dL (0.0-0.4); BILIRUBIN,TOTAL 0.4 mg/dL (0.2-1.3); BLOOD UREA NITROGEN 48 mg/dL (7-20); CARBON DIOXIDE 13 mmol/L (22-30); CHLORIDE 115 mmol/L (98-107); CREATINE KINASE 135 U/L (30-135); GLUCOSE 251 mg/dL (75-110); TOTAL PROTEIN 8.1 g/dL (6.3-8.2)
[2018-09-29 13:10] LABS: POTASSIUM 6.9 mmol/L (3.6-5.0)
[2018-09-29] MEDS ORDERED: INSULIN REG, HUMAN 100 UNIT/ML 3 ML VIAL (PYX) IV ONE (13:11)
[2018-09-29] MEDS ORDERED: DEXTROSE 50%-WATER 25 GM/50 ML DISP.SYRIN IV ONE ×2 (13:11→13:23)
[2018-09-29] MEDS ORDERED: SODIUM BICARBONATE 4.2% INJ (2.5 MEQ/5 ML) VIAL INJ ONE (13:13)
[2018-09-29] MEDS ORDERED: SODIUM BICARBONATE 8.4% INJ 10 MEQ/10 ML DISP.SYRIN IV ONE (13:17)
--- NOTE | 2018-09-29 13:17 | ER Document Report ---
ED Dizziness/Weakness - General Chief Complaint: Arrhythmia Stated Complaint: HEART RATE AND BLOOD PRESSURE ISSUE Time Seen by Provider: 09/29/18 12:31 Mode of Arrival: Ambulatory Information source: Patient Notes: History of Present Illness Chief Complaint: [syncope] [ 57 years old female on multiple medications including Cardizem 180, she forgot to take her medications yesterday therefore she took 2 tablets around 3:00 PM, prior to arrival she was having dizziness and one time she passed out. Briefly has been found on the floor and brought her to the ED. There were no head injury. The noted her pulse to be around 30 and blood pressure was 90 systole. Currently denies any headache denies any dizziness while sitting, denies any focal weakness numbness tingling sensation. Denies any fever chills or other constitutional symptoms] History obtained from [patient] Symptoms began:[ today] Onset: [abrupt] Timing: [lasted seconds, now recovered] Context: [As above ] Preceding symptoms: [none] Aggravating factors: [none] Relieving factors: [none] Denies injury/trauma Denies witness seizure activity, incontinence, or significant postictal period Denies serious bleeding Denies calf or leg swelling or pain Review of systems: All other systems negative as reviewed. CONSTITUTIONAL No fever. EYES No eye pain. ENT No URI symptoms, No sore throat, No ear pain. CARDIOVASCULAR No chest pain, No palpitations, No edema. RESPIRATORY No Cough, No SOB, No wheezing. GASTROINTESTINAL No abdominal pain, No vomiting, No diarrhea, No melena, No rectal bleeding. GENITOURINARY No UTI symptoms. MUSCULOSKELETAL No back pain. SKIN No Rash. NEUROLOGIC No Headache, No paralysis, No parathesias. Physical Exam CONSTITUTIONAL Vital signs reviewed, Comfortable, Alert and oriented X 3. HEAD Atraumatic, Normal cephalic. EYES No discharge from eye, Sclera are not injected, Extraocular muscles intact, Conjunctiva are normal.perrl,2mm, no photophobia, no nystagmus, fundi wnl. ENT Ears normal to inspection, Nose examination normal, Oropharynx normal, Mucous me mbranes pink, moist, normal in color. NECK Normal inspection, supple, No focal bony tenderness, Normal ROM, No jugular venous distention, No meningeal signs, no carotid bruit or tenderness. RESPIRATORY/CHEST Chest is non-tender, Breath sounds normal, No respiratory distress. CARDIOVASCULAR RRR, Heart sounds normal. ABDOMEN Abdomen is non-tender, No masses, Bowel sounds normal, No distension, No peritoneal signs. BACK Normal inspection. UPPER EXTREMITY Inspection normal, Non tender, No cyanosis/clubbing/edema. LOWER EXTREMITY Inspection normal, Non tender, No cyanosis/clubbing/edema, No calf tenderness. NEURO cn intact, no astreixis, no pronator drift, finger to nose testing coordinated bilaterally, 1+ deep tendon reflexes x 4 ext, down going babinski bilaterally, normal speech, Motor exam normal, Sensory exam normal. SKIN Skin is warm and dry, No rash. LYMPHATIC No adenopathy in neck. PSYCHIATRIC Normal affect. TRAVEL OUTSIDE OF THE [place] IN LAST 30 DAYS: No - HPI Notes: Dictated - Related Data Allergies/Adverse Reactions: phenobarbital Allergy (Verified 09/29/18 12:19) Past Medical History - Social History Smoking Status: Former Smoker Frequency of alcohol use: Rare Drug Abuse: None Lives with: Family Family History: Reviewed & Not Pertinent Patient has suicidal ideation: No Patient has homicidal ideation: No - Past Medical History Cardiac Medical History: Reports: Hx Hypercholesterolemia, Hx Hypertension Endocrine Medical History: Reports: Hx Diabetes Mellitus Type 2 Renal/ Medical History: Denies: Hx Peritoneal Dialysis Past Surgical History: Reports: Hx Bowel Surgery - left side, Hx Cholecystectomy Review of Systems - Review of Systems Notes: Dictated Physical Exam - Notes Notes: Dictated Course - Re-evaluation Re-evalutation: 09/29/18 13:14 Potassium was reported as 6.9, insulin 10 units plus D50 was given. As well as her bicarb. Previously she got a calcium chloride. 09/29/18 14:32 Repeat EKG showed heart rate of 46 bpm normal axis. No tall T waves noted. - Laboratory Result Diagrams: 09/29/18 12:22 09/29/18 12:22 Laboratory results interpreted by me: 09/29/18 09/29/18 12:22 12:22 WBC 13.4 H RBC 3.42 L Hgb 10.5 L Hct 32.3 L RDW 16.5 H Band Neutrophils % 1 L Abs Monocytes (Manual) 1.5 H Abs Basophils (Manual) 0.3 H Potassium 6.9 H* Chloride 115 H Carbon Dioxide 13 L BUN 48 H Creatinine 2.66 H Est GFR ( Amer) 22 L Est GFR (Non-Af Amer) 18 L Glucose 251 H Critical Care Note - Critical Care Note Total time excluding time spent on procedures (mins): 60 Comments: Management of bradycardia, hyperkalemia, overdose of Cardizem. Discussed the case with hospital service and admitted. Discharge - Discharge Clinical Impression: Hyperkalemia, Bradycardia, Cardizem overdose, Syncope and collapse Condition: Critical Disposition: ADMITTED INPATIENT Unit Admitted: IMCU Referrals: ELIZ FAGAN PA-C [Primary Care Provider] - Follow up as needed
[2018-09-29 13:19] LABS: ABSOLUTE LYMPHOCYTES# (MANUAL) 3.4 10^3/uL (0.5-4.7); ABSOLUTE MONOCYTES # (MANUAL) 1.5 10^3/uL (0.1-1.4); ABSOLUTE NEUTROPHILS# (MANUAL) 7.8 10^3/uL (1.7-8.2); BAND NEUTROPHILS % (MANUAL) 1 % (3-5); BASOPHILS % (MANUAL) 2 % (0-2); EOSINOPHILS % (MANUAL) 4 % (0-6); LYMPHOCYTES % (MANUAL) 25 % (13-45); MONOCYTES % (MANUAL) 11 % (3-13); SEGMENTED NEUTROPHILS % (MAN) 57 % (42-78); TOTAL CELLS COUNTED 100
[2018-09-29 13:20] LABS: ANISOCYTOSIS 1+
[2018-09-29 13:21] LABS: OVALOCYTES SLIGHT; PLATELET COMMENT ADEQUATE; POIKILOCYTOSIS SLIGHT; ROULEAUX 1+
[2018-09-29] MEDS ORDERED: SODIUM BICARBONATE 8.4% INJ 50 MEQ/50 ML DISP.SYRIN INJ ONE (13:30)
[2018-09-29] MEDS ORDERED: ONDANSETRON HCL INJ/PF 4 MG/2 ML SDV ONE (13:51)
--- NOTE | 2018-09-29 15:00 | RADIOLOGY REPORT (SQ) ---
EXAM DESCRIPTION: CHEST SINGLE VIEW COMPLETED DATE/TIME: 09/29/2018 2:47 pm REASON FOR STUDY: cough COMPARISON: 05/04/2017 and earlier EXAM PARAMETERS: NUMBER OF VIEWS: One view. TECHNIQUE: Single frontal radiographic view of the chest acquired. RADIATION DOSE: NA LIMITATIONS: None. FINDINGS: LUNGS AND PLEURA: No opacities, masses or pneumothorax. No pleural effusion. MEDIASTINUM AND HILAR STRUCTURES: No masses. Contour normal. HEART AND VASCULAR STRUCTURES: Heart normal in size. Normal vasculature. BONES: No acute findings. HARDWARE: None in the chest. OTHER: No other significant finding. IMPRESSION: NO ACUTE RADIOGRAPHIC FINDING IN THE CHEST. TECHNICAL DOCUMENTATION: JOB ID: [id number] [employer]- All Rights Reserved Reading location - IP/workstation name: [email or web address]
[2018-09-29] MEDS ORDERED: ACETAMINOPHEN 325 MG TABLET PO PRN (15:31)
[2018-09-29] MEDS ORDERED: NORMAL SALINE 1000 ML 1,000 ML IV PRN (15:31)
[2018-09-29 16:26] LABS: ANION GAP 12 (5-19); BLOOD UREA NITROGEN 49 mg/dL (7-20); CALCIUM 8.7 mg/dL (8.4-10.2); CARBON DIOXIDE 19 mmol/L (22-30); CHLORIDE 114 mmol/L (98-107); GLUCOSE 187 mg/dL (75-110); SODIUM 145.4 mmol/L (137-145)
[2018-09-29 16:34] LABS: POTASSIUM 5.3 mmol/L (3.6-5.0)
[2018-09-29] MEDS ORDERED: 1/2 NORMAL SALINE 500 ML IV PRN (17:00)
[2018-09-29] MEDS ORDERED: MAGNESIUM SULFATE/D5W 1 GM/100 ML RTUPB IV ONE (17:00)
[2018-09-29] MEDS ORDERED: ONDANSETRON 4 MG TAB.RAPDIS PO PRN (17:02)
[2018-09-29] MEDS ORDERED: TRAMADOL HCL 50 MG TABLET PO PRN (17:02)
[2018-09-29] MEDS: PATIROMER 8.4 GM SUSP PACKET PO SCH (17:19)
[2018-09-29] MEDS: DOCUSATE SODIUM 100 MG CAPSULE PO SCH (17:23)
[2018-09-29] MEDS: 1/2 NORMAL SALINE 1,000 ML IV PRN (20:27)
[2018-09-29] MEDS ORDERED: VANCOMYCIN HCL INJ 1000 MG VIAL IV ONE (21:07)
[2018-09-29] MEDS ORDERED: MORPHINE SULFATE 10 MG/ML INJ IV PRN (21:10)
[2018-09-29] MEDS ORDERED: VANCOMYCIN HCL INJ 1000 MG VIAL IV SCH ×2 (21:15→21:45)
[2018-09-29] MEDS ORDERED: ERTAPENEM SODIUM INJ 1 GM VIAL IV SCH (21:15)
[2018-09-29] MEDS ORDERED: ERTAPENEM SODIUM INJ 1 GM VIAL IV PRN (21:27)
[2018-09-29] MEDS ORDERED: VANCOMYCIN HCL INJ 1000 MG VIAL IV PRN (21:41)
--- NOTE | 2018-09-29 21:51 | EKG REPORT ---
SEVERITY:- ABNORMAL ECG - SINUS BRADYCARDIA LEFT BUNDLE BRANCH BLOCK : Confirmed by: Sander Jiménez MD 29-Sep-2018 21:50:37
--- NOTE | 2018-09-29 21:52 | EKG REPORT ---
SEVERITY:- ABNORMAL ECG - JUNCTIONAL RHYTHM SUPRAVENTRICULAR BIGEMINY LEFT BUNDLE BRANCH BLOCK : Confirmed by: Sander Jiménez MD 29-Sep-2018 21:51:55
[2018-09-29] MEDS ORDERED: ERTAPENEM SODIUM 0.5 GM in NORMAL SALINE 50 ML IV SCH (22:00)
[2018-09-29] MEDS: MORPHINE SULFATE 10 MG/ML INJ IV PRN (22:54)
[2018-09-29] MEDS: HEPARIN SOD (PORCINE) 5,000 UNIT/ML 1 ML SYRINGE SUBCUT SCH (22:56)
[2018-09-29] MEDS ORDERED: VANCOMYCIN HCL 1,250 MG in DEXTROSE 5%-WATER 250 ML IV ONE (23:00)
--- NOTE | 2018-09-29 23:17 | HISTORY AND PHYSICAL E ---
History and Physical NAME: RAYMOND PACHECO : 1960 AGE: 57Y ADMITTED: 09/29/2018 ROOM: ED03 CODE STATUS: DO NOT RESUSCITATE, DO NOT INTUBATE. PRIMARY CARE PROVIDER: Asad Holley. OUTPATIENT SPECIAL POLICE: Valente Arellano MD. CHIEF COMPLAINT: Low pulse and blood pressure. HISTORY OF PRESENT ILLNESS: The patient is a 57-year-old female with a past medical history of chronic kidney disease, stage 4, as well as diabetes mellitus type 2. The patient presented to the emergency department with a chief complaint of having a low heart rate as well as blood pressure. The patient states that she took numerous medications, including Cardizem 180. The patient is on a number of medicines every day. The patient stated she forgot to take her yesterday's dose; therefore, she took 2 tablets this morning around 3 a.m. Prior to arrival, the patient was noted to have dizziness and apparently had a very brief but witnessed syncopal episode. The patient was actually found on the floor by EMS. She denied striking her head. The patient's reported that her pulse had been around 30, and he checked her blood pressure and it was around 90 systolically. The patient denied any headache, but was dizzy once she woke up. She also admitted to feeling nauseous. The patient denied any focal weakness. No numbness or tingling. No fevers or chills. Upon presentation to the emergency department, the patient was found to have a heart rate of 30 and was treated with calcium gluconate for a calcium channel taj overdose, which was nonintentional. The patient was interestingly found to have a potassium of 6.9 and her creatinine was 2.66, where it appears her baseline is normally around the 2 range. Patient's glucose was 251. She had a slight white count at 13.4. The patient was found to be hypotensive with systolics in the 80s and 90s. Given these findings, the patient was referred to the hospital for admission and management. PAST MEDICAL HISTORY: Remarkable for: 1. Hyperlipidemia. 2. Hypertension. 3. Diabetes mellitus type 2. 4. Chronic kidney disease, stage 4. 5. Psoriatic arthritis. PAST SURGICAL HISTORY: Includes: 1. Bowel resection. 2. Cholecystectomy. 3. Right shoulder surgery. ALLERGIES: Include PHENOBARBITAL. HOME MEDICATIONS: Include: 1. Otezla 1 tablet, 30 mg, p.o. daily. 2. Calcitriol 0.25 mg p.o. daily. 3. Coreg 6.25 mg p.o. q.12 hours. 4. Cardizem extended release 240 mg p.o. b.i.d. 5. Glimepiride 1 mg p.o. daily. SOCIAL HISTORY: The patient currently resides at home with her , who is her default decision-maker, Mark, who may be reached at [phone]. The patient does have a history of tobacco use. She stopped smoking a couple of years ago. The patient denies any alcohol or illicit drug use. FAMILY MEDICAL HISTORY: Positive for diabetes and hypertension in multiple family members. The patient's parents are . The patient does have a sibling with hypertension. The patient does have children that are healthy. REVIEW OF SYSTEMS: CONSTITUTIONAL: The patient denies any fevers, chills. Admits to weakness and dizziness. No real change in appetite. INTEGUMENTARY: The patient denies any diaphoresis, rash, bruising or itching. HEENT: Denies any vision or hearing loss. No nasal drainage. No sore throat. CVS: Denies any chest pain or shortness of breath, edema or heart palpitations. RESPIRATORY: Denies any cough, sputum production or hemoptysis. GI: Denies any vomiting, diarrhea, abdominal pain, bloating, hematemesis, constipation, melena or hematochezia. Does admit to nausea with vomiting. : Denies any hematuria, pyuria or dysuria. MUSCULOSKELETAL: Patient does have chronic back pain. NEUROLOGICAL: No seizure, tremors or loss of consciousness. HEMATOLOGICAL: Denies any riya bleeding or easy bruising. ENDOCRINE: Denies any recent weight changes. Blood glucose has been relatively stable. PSYCHIATRIC: Denies suicidal or homicidal ideation. The rest of the review of the other organ systems is negative. PHYSICAL EXAMINATION: GENERAL: On examination, the patient is a well-developed, well-nourished 57-year-old female, who is awake, alert. She is oriented to person, place, time and situation. She does not appear to be in any acute distress. VITAL SIGNS: Temperature is 97.2, pulse is 44, respirations 12, blood pressure is 121/52, oxygen saturation 96% on room air. SKIN: Pale and dry. No rash. She is not diaphoretic. HEENT: Pupils equal, round, reactive to light and accommodation. Conjunctivae are pink. Sclerae are nonicteric. NECK: Trachea is midline. Neck is supple. No JVD. No palpable lymphadenopathy or thyromegaly. CVS: Heart is regular, bradycardic. No rub. CHEST: Clear and symmetrical, unlabored. ABDOMEN: Soft, nontender, nondistended. Bowel sounds are present. No palpable organomegaly. BACK: No CVA tenderness or sacral edema. EXTREMITIES: Dressings dry intact. Plus 1 pedal pulses noted bilaterally. PSYCHIATRIC: Appropriate affect. Pleasant mood. DIAGNOSTICS: Lab values are as follows: Hematology obtained on 09/29/2018 includes sodium of 142, potassium 6.9, chloride is 115, carbon dioxide is 13, BUN 48, creatinine 3.66, glucose 251, calcium is 9.0, bilirubin 0.4, AST 18, ALT 22, alk phos 25. CK 135. Troponin 0.012. Total protein 8.1, albumin 4.4. Chest x-ray obtained on 09/29/2018 reveals no acute radiographic finding of the chest. IMPRESSION AND PLAN: 1. Unintentional overdose of calcium channel taj. Will hold the patient's Cardizem for now. She has been treated with calcium gluconate. Will monitor the patient's blood pressure and heart rate and follow. 2. Hyperkalemia. The patient has been treated with dextrose and insulin. Unfortunately, Kayexalate is not available at this facility, but she has been hydrated. We will repeat stat chemistries now and follow. 3. Acute kidney injury on stage 4 chronic kidney disease. Patient's creatinine is still above baseline. Will hydrate the patient and follow chemistries. 4. Diabetes mellitus type 2. Will add sliding scale coverage and resume home medicines. 5. Hypotension, most likely secondary to #1. Has responded well to fluids. DISPOSITION: The patient is a DO NOT RESUSCITATE/DO NOT INTUBATE, as the patient states that she does want a natural . Pending patient's symptomatology and diagnostic findings, will reevaluate in the a.m. Will admit the patient to inpatient IMCU. The patient's expected length of stay should surpass 2 midnights. Time spent on this admission, including assessment, plan, physical examination, patient education, review of records is 70 minutes. DICTATING PHYSICIAN: ASAD BLUNT NP [id number] PHY#: [id number] ID: [id number] JOB#: [id number] ACCT: [id number] cc:KYAW VITALE M.D. > GOUVERNEUR HEALTHEnrique
[2018-09-30] MEDS ORDERED: ERTAPENEM SODIUM INJ 1 GM VIAL ONE (00:22)
[2018-09-30] MEDS ORDERED: ERTAPENEM SODIUM 0.5 GM in NORMAL SALINE 50 ML IV ONE (01:00)
[2018-09-30] MEDS ORDERED: CARVEDILOL 6.25 MG TABLET PO ONE (02:30)
[2018-09-30] MEDS: MORPHINE SULFATE 10 MG/ML INJ IV PRN ×6 (02:49→22:22)
[2018-09-30] MEDS ORDERED: VANCOMYCIN HCL INJ 500 MG VIAL ONE (03:01)
[2018-09-30] MEDS ORDERED: VANCOMYCIN HCL INJ 1000 MG VIAL ONE (03:01)
[2018-09-30] MEDS ORDERED: VANCOMYCIN HCL 1,250 MG in DEXTROSE 5%-WATER 250 ML IV ONE (03:15)
[2018-09-30 03:22] LABS: HEMATOCRIT 28.9 % (36.0-47.0); HEMOGLOBIN 9.6 g/dL (12.0-15.5); MEAN CORPUSCULAR HEMOGLOBIN 30.1 pg (27.0-33.4); MEAN CORPUSCULAR HGB CONC 33.1 g/dL (32.0-36.0); PLATELET COUNT 275 10^3/uL (150-450); RED BLOOD COUNT 3.18 10^6/uL (3.72-5.28); WHITE BLOOD COUNT 7.6 10^3/uL (4.0-10.5)
[2018-09-30 03:27] LABS: MEAN CORPUSCULAR VOLUME 91 fl (80-97)
[2018-09-30 03:53] LABS: ANION GAP 11 (5-19); BLOOD UREA NITROGEN 49 mg/dL (7-20); CALCIUM 9.2 mg/dL (8.4-10.2); CARBON DIOXIDE 19 mmol/L (22-30); CHLORIDE 114 mmol/L (98-107); GLUCOSE 104 mg/dL (75-110); POTASSIUM 5.5 mmol/L (3.6-5.0); SODIUM 143.9 mmol/L (137-145)
[2018-09-30] MEDS: DILTIAZEM HCL 60 MG TABLET PO SCH ×2 (05:27→22:20)
[2018-09-30] MEDS: HEPARIN SOD (PORCINE) 5,000 UNIT/ML 1 ML SYRINGE SUBCUT SCH ×3 (05:29→22:23)
[2018-09-30] MEDS ORDERED: GLUCAGON,HUMAN RECOMB 1 MG INJ IM PRN (09:28)
[2018-09-30] MEDS ORDERED: DEXTROSE 40% GEL 15 GM TUBE PO PRN ×4 (09:28→18:02)
[2018-09-30] MEDS ORDERED: DEXTROSE 50%-WATER 25 GM/50 ML DISP.SYRIN IV PRN ×4 (09:28→18:02)
[2018-09-30] MEDS ORDERED: HYDROCODONE PO PRN (09:29)
[2018-09-30] MEDS ORDERED: ACETAMINOPHEN PO PRN (09:29)
[2018-09-30] MEDS ORDERED: [UNRECOGNIZED DRUG - OTHER] PO PRN (09:29)
[2018-09-30] MEDS ORDERED: CARVEDILOL 6.25 MG TABLET PO SCH (10:00)
[2018-09-30] MEDS: DOCUSATE SODIUM 100 MG CAPSULE PO SCH ×2 (12:03→22:26)
[2018-09-30] MEDS: 1/2 NORMAL SALINE 1,000 ML IV PRN (12:21)
[2018-09-30] MEDS ORDERED: MAGNESIUM SULFATE/D5W 1 GM/100 ML RTUPB IV ONE (13:24)
--- NOTE | 2018-09-30 17:57 | PROGRESS NOTE E ---
Progress Note NAME: RAYMOND PACHECO : 1960 AGE: 57Y DATE: 09/30/2018 ROOM: 609 SUBJECTIVE: Patient was seen this morning on rounds. The patient states she feels a little better this morning. Does still have some pain. Wants her hydrocodone resumed. The patient denies any nausea, vomiting. No diarrhea. No shortness of breath, dizziness or chest pain. The patient has been afebrile. Her blood pressure has been in good range. Patient's heart rate has recovered nicely. The patient does not voice any other concerns at this time. BRIEF HISTORY: The patient is a 57-year-old female with a past medical history of chronic kidney disease stage 4 that is followed by Dr. Arellano, and foot wounds. The patient presented to the emergency department due to being found hypotensive and bradycardic at home. The patient's does check her blood pressure, heart daily, and the patient was found to be quite bradycardic. According to the patient, she realized she had forgotten to take her Cardizem and so she doubled up on her dosage, bringing her to the emergency department. The patient denies any intentional overdoses. No suicidal or homicidal ideation or so forth. The patient was treated with calcium gluconate, bicarbonate in the emergency department. Additionally, the patient was found to be hyperkalemic, which was treated with insulin, dextrose and the patient was hydrated overnight. REVIEW OF SYSTEMS: The rest of the review of systems is negative. MEDICATION: Reviewed. OBJECTIVE: GENERAL: Patient is a 57-year-old female who is awake, alert and oriented to person, place, time and situation. She is verbal, conversational and does not appear to be distressed. VITAL SIGNS: Temperature is 98.3, pulse 65, respirations 12, blood pressure 149/60, oxygen saturation 98% on room air. SKIN: Warm and dry. No rash. Not diaphoretic. HEENT: Pupils equal, round, reactive to light and accommodation. Conjunctivae pink. No evidence of JVP. CVS: Heart is regular. No rub. CHEST: Clear, symmetrical, unlabored. ABDOMEN: Soft, nontender. EXTREMITIES: Wrapped in appropriate dressing. PSYCHIATRIC: Appropriate affect, pleasant mood. DIAGNOSTICS: Lab values are as follows: Hematology obtained on 09/30/2018: WBCs are 7.6, hemoglobin is 9.6, hematocrit is 28.6, platelet count is 375,000. Chemistry obtained on 09/30/2018: Sodium is 143, potassium 5.5, chloride is 114, carbon dioxide 19, BUN 49, creatinine 2.40. Glucose 104. Calcium is 9.2, magnesium is 1.4. IMPRESSION AND PLAN: 1. UNINTENTIONAL CALCIUM CHANNEL NICOLE OVERDOSE. The patient's Cardizem has been resumed, given that her heart rate is increased. Patient was treated with calcium gluconate. Will continue to monitor closely though. 2. HYPERKALEMIA. This was treated with dextrose, insulin. Unfortunately, Kayexalate is not available at this facility at this time; however, the patient has been hydrated and her potassium is a steady state. No peak T waves noted on EKG. Will repeat chemistry in the a.m. and follow. 3. ACUTE KIDNEY INJURY ON STAGE 4 CHRONIC KIDNEY DISEASE. Continues to improve somewhat with hydration. 4. DIABETES MELLITUS TYPE 2. Will continue with sliding scale coverage as well as her home medication. 5. HYPOTENSION, SECONDARY TO #1. Responded well to fluids. 6. FOOT ULCERATIONS. The patient has been seen by Surgery. Will continue antibiotic coverage for now and follow. DISPOSITION: The patient is DO NOT RESUSCITATE/DO NOT INTUBATE. Pending patient's symptomatology and diagnostic findings, will reevaluate in the a.m. Time spent on this followup, including assessment, plan, physical examination, patient education, review of records was 35 minutes. DICTATING PHYSICIAN: ELIZ BLUNT NP [id number] PHY#: [id number] ID: [id number] JOB#: [id number] ACCT: [id number] cc: >
--- NOTE | 2018-09-30 18:01 | PDOC CONSULTATION ---
Consultation Consult Date: 09/30/18 Consult reason:: Bilateral foot wounds History of Present Illness Admission Date/PCP: 09/29/18 15:11 ELIZ FAGAN PA-C History of Present Illness: RAYMOND PACHECO is a 57 year old female seen at the request of the hospitalist service. The patient is a diabetic with known diabetic neuropathy. She has had previous surgeries/toe amputation in the past. The patient was admitted for h ypotension and dizziness, possibly related to unintentional overdose of medications. Patient has wounds present on her foot. She reports that her neuropathy inhibits her feeling. She reports that she did not know that the wounds were present. No one helps to care for her feet. She does not see a truck washer or wound care physician. The patient reports noticing a foul odor for the last several weeks emanating from her feet. She denies any purulent drainage, erythema, or significant amount of pain. Patient denies fevers, chills, nausea, vomiting, chest pain, shortness of breath, headache. She does report dizziness, orthostasis, malaise, and fatigue. Past Medical History Cardiac Medical History: Reports: Hyperlipidema, Hypertension Endocrine Medical History: Reports: Diabetes Mellitus Type 2 Psychiatric Medical History: Denies: Depression Past Surgical History Past Surgical History: Reports: Cholecystectomy Social History Lives with: Family Smoking Status: Former Smoker Cigarettes Packs Per Day: 1.5 Number of Years Smokin Last Time Smoked: 5 years ago Frequency of Alcohol Use: None Hx Prescription Drug Abuse: No - Advance Directive Resuscitation Status: Do Not Resuscitate Family History Family History: Reviewed & Not Pertinent Parental Family History Reviewed: Yes Children Family History Reviewed: Yes Sibling(s) Family History Reviewed.: Yes Medication/Allergy Home Medications: Carvedilol [Coreg 6.25 mg Tablet] 6.25 mg PO Q12 09/29/18 Clobetasol Propionate [Temovate Ointment] 1 applic TP BIDP PRN 09/29/18 Diltiazem HCl [Tiazac] 240 mg PO Q12 09/29/18 Gabapentin [Neurontin 300 mg Capsule] 300 mg PO TID 09/29/18 Glimepiride [Amaryl] 2 mg PO DAILY 09/29/18 Hydroxyzine HCl [Atarax 25 mg Tablet] 1 tab PO QID 09/29/18 Lisinopril [Prinivil] 20 mg PO DAILY 09/29/18 Ondansetron [Zofran Odt 4 mg Tablet] 8 mg PO Q6HP PRN 09/29/18 Tramadol HCl [Ultram 50 mg Tablet] 50 mg PO Q6HP PRN 09/29/18 Hydrocodone/Acetaminophen [[place] 7.5-325 mg Tablet] 1 tab PO Q6HP PRN 09/30/18 Allergies/Adverse Reactions: phenobarbital Allergy (Verified 09/29/18 12:19) Review of Systems Constitutional: PRESENT: fatigue. ABSENT: anorexia, chills, fever(s) Ears: ABSENT: hearing changes Nose, Mouth, and Throat: ABSENT: sore throat Cardiovascular: ABSENT: chest pain, palpitations Respiratory: ABSENT: cough, dyspnea Gastrointestinal: ABSENT: abdominal pain, hematemesis, hematochezia, nausea, vomiting Genitourinary: ABSENT: dysuria Musculoskeletal: ABSENT: back pain Integumentary: PRESENT: wounds - Bilateral foot wounds present.. ABSENT: rash Neurological: PRESENT: dizziness, syncope Psychiatric: ABSENT: anxiety, depression Endocrine: ABSENT: cold intolerance, heat intolerance Hematologic/Lymphatic: ABSENT: easy bleeding, easy bruising Physical Exam Vital Signs: Temp Pulse Resp BP Pulse Ox 98.5 F 60 16 149/60 H 97 09/30/18 14:00 09/29/18 22:20 09/30/18 15:00 09/30/18 12:17 09/30/18 14:00 Intake & Output 09/29/18 09/30/18 10/01/18 06:59 06:59 06:59 Intake Total 1360 1000 Output Total 1800 Balance -440 1000 Weight 73.8 kg General appearance: PRESENT: disheveled Head exam: PRESENT: atraumatic, normocephalic Eye exam: PRESENT: EOMI, PERRLA. ABSENT: scleral icterus Mouth exam: PRESENT: moist, neck supple Neck exam: ABSENT: meningismus, tenderness, thyromegaly, tracheal deviation Cardiovascular exam: PRESENT: RRR Pulses: PRESENT: normal radial pulses Vascular exam: PRESENT: pallor GI/Abdominal exam: PRESENT: soft. ABSENT: distended, firm, tenderness Rectal exam: PRESENT: deferred Extremities exam: PRESENT: other - Eschar to the left great toe. Necrotic area of the right lateral midfoot. Small amount of purulent drainage. Neurological exam: PRESENT: alert, awake, oriented to person, oriented to place, oriented to time, oriented to situation. ABSENT: CN II-XII grossly intact Psychiatric exam: ABSENT: agitated, anxious, depressed Focused psych exam: ABSENT: delusional Skin exam: ABSENT: cyanosis, jaundice Results Laboratory Results: 09/30/18 03:14 09/30/18 03:14 09/30/18 09/30/18 03:14 03:14 WBC 7.6 RBC 3.18 L Hgb 9.6 L Hct 28.9 L MCV 91 D MCH 30.1 MCHC 33.1 RDW 16.0 H Plt Count 275 Sodium 143.9 Potassium 5.5 H Chloride 114 H Carbon Dioxide 19 L Anion Gap 11 BUN 49 H Creatinine 2.40 H Est GFR ( Amer) 25 L Est GFR (Non-Af Amer) 21 L Glucose 104 Calcium 9.2 Magnesium 1.4 L 09/29/18 09/29/18 12:22 12:22 Creatine Kinase 135 Troponin I < 0.012 Impressions: Chest X-Ray 09/29/18 14:10 IMPRESSION: NO ACUTE RADIOGRAPHIC FINDING IN THE CHEST. Assessment & Plan - Diagnosis (1) Diabetic foot infection Is this a current diagnosis for this admission?: Yes - Plan Summary Plan Summary: This is a 57-year-old female with a significant diabetic foot infection. The patient has a large wound to the right lateral foot. There is evidence of necrosis at the lateral aspect with purulent drainage. I believe the patient has an area that will require debridement. There are several other eschars and areas of dry skin on bilateral feet. I will have the nursing staff wash her feet today with soap and water. Plan for debridement tomorrow. N.p.o. after midnight.
[2018-09-30] MEDS ORDERED: GLUCAGON,HUMAN RECOMB 1 MG INJ SUBCUT PRN (18:02)
[2018-09-30] MEDS: PATIROMER 8.4 GM SUSP PACKET PO SCH (19:01)
[2018-09-30] MEDS ORDERED: VANCOMYCIN HCL 1,000 MG in DEXTROSE 5%-WATER 250 ML IV SCH (22:00)
[2018-09-30] MEDS: CARVEDILOL 3.125 MG TABLET PO SCH (22:20)
[2018-09-30] MEDS: ERTAPENEM SODIUM 0.5 GM in NORMAL SALINE 50 ML IV SCH (22:21)
[2018-09-30] MEDS: HYDROCODONE/ACETAMINOPHEN 7.5-325 MG TABLET PO PRN (23:25)
[2018-10-01] MEDS ORDERED: DIPHENHYDRAMINE HCL 25 MG CAPSULE ONE (03:04)
[2018-10-01 03:52] LABS: HEMATOCRIT 29.9 % (36.0-47.0); HEMOGLOBIN 10.2 g/dL (12.0-15.5); MEAN CORPUSCULAR HEMOGLOBIN 30.7 pg (27.0-33.4); MEAN CORPUSCULAR VOLUME 90 fl (80-97); PLATELET COUNT 270 10^3/uL (150-450); RED BLOOD COUNT 3.32 10^6/uL (3.72-5.28); RED CELL DISTRIBUTION WIDTH 15.7 % (11.5-14.0); WHITE BLOOD COUNT 6.4 10^3/uL (4.0-10.5)
[2018-10-01] MEDS: DIPHENHYDRAMINE HCL 50 MG CAPSULE PO PRN ×2 (03:54→22:20)
[2018-10-01 04:11] LABS: ANION GAP 6 (5-19); BLOOD UREA NITROGEN 34 mg/dL (7-20); CALCIUM 9.6 mg/dL (8.4-10.2); CARBON DIOXIDE 23 mmol/L (22-30); CHLORIDE 111 mmol/L (98-107); GLUCOSE 127 mg/dL (75-110); POTASSIUM 5.3 mmol/L (3.6-5.0); SODIUM 140.4 mmol/L (137-145)
[2018-10-01] MEDS ORDERED: DIPHENHYDRAMINE HCL 50 MG/ML VIAL ONE (06:19)
[2018-10-01] MEDS: HYDROCODONE/ACETAMINOPHEN 7.5-325 MG TABLET PO PRN ×3 (06:20→22:32)
[2018-10-01] MEDS: CARVEDILOL 3.125 MG TABLET PO SCH ×2 (06:21→22:20)
[2018-10-01] MEDS: HEPARIN SOD (PORCINE) 5,000 UNIT/ML 1 ML SYRINGE SUBCUT SCH (06:21)
[2018-10-01] MEDS: DILTIAZEM HCL 60 MG TABLET PO SCH ×2 (06:22→22:19)
[2018-10-01] MEDS ORDERED: DIPHENHYDRAMINE HCL 50 MG/ML VIAL IV ONE (06:30)
[2018-10-01] MEDS ORDERED: LIDOCAINE 2% INJ-PF (20 MG/ML) 10 ML AMPUL ONE (09:20)
[2018-10-01] MEDS ORDERED: KETAMINE HCL INJ 500 MG/10 ML VIAL ONE (09:20)
[2018-10-01] MEDS ORDERED: DEXAMETHASONE SOD PHOSPHATE INJ 4 MG/1 ML VIAL ONE (09:20)
[2018-10-01] MEDS ORDERED: FENTANYL CITRATE INJ/PF 100 MCG/2 ML AMPUL ONE (09:20)
[2018-10-01] MEDS ORDERED: MIDAZOLAM 2 MG/2 ML INJ ONE (09:20)
[2018-10-01] MEDS ORDERED: ONDANSETRON HCL INJ/PF 4 MG/2 ML SDV ONE (09:21)
[2018-10-01] MEDS ORDERED: PROPOFOL INJ 200 MG/20 ML VIAL IV ONE (09:21)
[2018-10-01] MEDS ORDERED: LIDOCAINE 1% INJ-PF (10 MG/ML) 30 ML SDV ONE (09:30)
[2018-10-01] MEDS ORDERED: ONDANSETRON HCL INJ/PF 4 MG/2 ML SDV IV PRN (10:01)
[2018-10-01] MEDS ORDERED: PROMETHAZINE HCL INJ 25 MG/1 ML VIAL IV PRN ×2 (10:01)
[2018-10-01] MEDS ORDERED: FENTANYL CITRATE INJ/PF 100 MCG/2 ML AMPUL IV PRN ×3 (10:01)
[2018-10-01] MEDS ORDERED: MEPERIDINE HCL/PF INJ 25 MG/1 ML DISP.SYRIN IV PRN (10:01)
[2018-10-01] MEDS ORDERED: DIPHENHYDRAMINE HCL 50 MG/ML VIAL IV PRN (10:01)
[2018-10-01] MEDS ORDERED: MORPHINE SULFATE 10 MG/ML INJ IV PRN (10:01)
[2018-10-01] MEDS: FENTANYL CITRATE INJ/PF 100 MCG/2 ML AMPUL ONE ×2 (10:36→10:41)
--- NOTE | 2018-10-01 10:52 | Operative Report ---
Operative Report DATE OF SURGERY: 10/01/18 PREOPERATIVE DIAGNOSIS: Wound lateral aspect right foot, status post right fifth ray amputation; multiple smaller wounds right great toe left great toe left third toe: Overgrown toenails POSTOPERATIVE DIAGNOSIS: Same with soft tissue and probable chronic osteomyelitis of the right fifth tarsal bone OPERATION: 1. Excision of left great toe left third toe right great toe right third toe and right fourth toe nails. 2. Excisional debridement of left great toe and right great toe plantar surface stage IV pressure ulcers. 3. Revision of left third toe stage IV pressure ulcer. 5. Excisional debridement of chronic wound lateral aspect right foot, counterincision medial aspect right foot, irrigation and debridement of plantar surface right foot with drain placement; debridement of lateral aspect right fifth metatarsal bone. SURGEON: RUCHI DEWEY ANESTHESIA: GA TISSUE REMOVED OR ALTERED: Redundant and nails, skin, subcutaneous tissue bone fragments; right foot wound sent for culture and sensitivity. COMPLICATIONS: None ESTIMATED BLOOD LOSS: 20 cc INTRAOPERATIVE FINDINGS: See below PROCEDURE: Patient was seen in the preop holding area, taken to the main operating where general anesthesia was induced. Right foot and left foot both prepped and draped in sterile fashion. Surgical and surgical timeout were conducted. Left foot was significant for a stage IV pressure ulcer of the left great toe, plantar surface, as well as a stage IV dorsal surface third toe ulcer. Both of these ulcers were debrided down through the fascia, to the exposed tendon respectively. Vigorously. Perimeter hypertrophied callus excised with wire cu tter. The left great toenail as well as the left third great toenail were grossly grown, and word excisionally debrided with wire cutters. Surface of toenails which were still redundant in areas filed down with a respiratory file. Attention now directed to the right foot. Exfoliating skin over the dorsal and plantar surface of the foot debrided bluntly. Right great toenail similarly excised down to the reasonable amount of hypertrophied nail with wire cutters. Right third toenail also debrided with cutters. We now directed our attention to the lateral aspect of the right foot. Status p ost right great toe amputation. There was chronic scar tissue, granulation tissue, and exposed tendon laterally and along the plantar surface. All visible, nonviable skin and subcutaneous tissue granulation tissue, chronic peel, and nonviable tendon excisionally debrided with scissors and knife. Deep wound cultures sent for Gram stain culture and sensitivity. There was a chronic large pocket beneath the deep dermis of the plantar surface of the right foot which was broken up with the index finger. This extended approximately 6 cm caudad, 4 cm cephalad and medially to the medial aspect of the plantar surface of the mid right foot. A counterincision was made over the medial aspect of the foot, and a large Robin drain put into position and looped in a not tied. The right foot wound was irrigated with 1 L of saline. The lateral aspect of the right fifth metatarsal bone was debrided with a curette. We also used rongeurs to debride some of the exposed metatarsal bone. We got down to some bleeding tissue, and elected to stop at this point. Wounds dressed with Xeroform, 4 x 4's packed into the plantar surface of the right foot, and Kerlix rolls applied. Patient tolerated procedure, extubated, and taken to the recovery room in stable condition.
[2018-10-01] MEDS ORDERED: ACETAMINOPHEN 325 MG TABLET PO PRN (13:07)
[2018-10-01] MEDS: DOCUSATE SODIUM 100 MG CAPSULE PO SCH ×2 (13:25→22:19)
[2018-10-01] MEDS ORDERED: DIPHENHYDRAMINE HCL 50 MG CAPSULE PO ONE (15:00)
[2018-10-01] MEDS ORDERED: HYDROXYZINE PAMOATE 50 MG CAPSULE PO ONE (15:00)
[2018-10-01] MEDS: MORPHINE SULFATE 10 MG/ML INJ IV PRN (16:11)
[2018-10-01] MEDS: PATIROMER 8.4 GM SUSP PACKET PO SCH ×2 (17:42→18:55)
--- NOTE | 2018-10-01 17:45 | PDOC PROGRESS REPORT ---
Subjective Progress Note for:: 10/01/18 Subjective:: Patient was seen out of the ICU today. She experienced an episode of red man syndrome associated with IV vancomycin shortly after transferring to the general medical floor. She reports using Vistaril plus Benadryl at home for relief of itching. Only other alternative would be oral prednisone per her past medical experience. She went down for debridement today as well. At time of evaluation she is in good spirits. She is looking forward to lunch. She has no current complaints other than the itching. Denies fever or chills. No Complaints of pain Reason For Visit: HYPERKALEMIA,BRADYCARDIA Physical Exam Vital Signs: Temp Pulse Resp BP Pulse Ox 97 F L 62 14 143/63 H 94 10/01/18 11:25 10/01/18 11:25 10/01/18 11:25 10/01/18 11:25 10/01/18 11:25 Intake & Output 09/30/18 10/01/18 10/02/18 06:59 06:59 06:59 Intake Total 1360 1000 2750 Output Total 1800 2000 905 Balance -440 -1000 1845 Weight 73.8 kg 69.3 kg General appearance: PRESENT: no acute distress, cooperative Head exam: PRESENT: atraumatic, normocephalic Respiratory exam: PRESENT: other - Good airflow bilaterally. Cardiovascular exam: PRESENT: RRR, +S1, +S2 GI/Abdominal exam: PRESENT: other - Nontender. Soft. Bowel sounds present. Extremities exam: PRESENT: other - Bilateral lower extremity's. Bilateral feet bandaged. Neurological exam: PRESENT: alert, awake, oriented to person, oriented to place, oriented to time, oriented to situation, CN II-XII grossly intact. ABSENT: m otor sensory deficit Psychiatric exam: PRESENT: appropriate affect, normal mood. ABSENT: homicidal ideation, suicidal ideation Skin exam: PRESENT: other - Bilateral lower extremities bandaged. Results Laboratory Results: 10/01/18 03:43 10/01/18 03:43 10/01/18 10/01/18 03:43 03:43 WBC 6.4 RBC 3.32 L Hgb 10.2 L Hct 29.9 L MCV 90 MCH 30.7 MCHC 34.0 RDW 15.7 H Plt Count 270 Sodium 140.4 Potassium 5.3 H Chloride 111 H Carbon Dioxide 23 Anion Gap 6 BUN 34 H Creatinine 1.95 H Est GFR ( Amer) 32 L Est GFR (Non-Af Amer) 26 L Glucose 127 H Calcium 9.6 Magnesium 1.3 L 09/29/18 09/29/18 12:22 12:22 Creatine Kinase 135 Troponin I < 0.012 Impressions: Chest X-Ray 09/29/18 14:10 IMPRESSION: NO ACUTE RADIOGRAPHIC FINDING IN THE CHEST. Assessment & Plan - Diagnosis (1) Red man syndrome Is this a current diagnosis for this admission?: Yes (2) Bradycardia Is this a current diagnosis for this admission?: Yes (3) Diabetic foot infection Is this a current diagnosis for this admission?: Yes (4) Hyperkalemia Is this a current diagnosis for this admission?: Yes (5) Syncope and collapse Is this a current diagnosis for this admission?: Yes - Time Time Spent with patient: 25-34 minutes Medications reviewed and adjusted accordingly: Yes - Inpatient Certification Based on my medical assessment, after consideration of the patient's comorbidities, presenting symptoms, or acuity I expect that the services needed warrant INPATIENT care.: Yes I certify that my determination is in accordance with my understanding of Medicare's requirements for reasonable and necessary INPATIENT services [42 CFR 412.3e].: Yes - Plan Summary Plan Summary: 1. Bradycardia. Resolved on admission. Suspected due to excessive Cardizem. Given the elevated white blood cell count in the infection of the foot, could be related to sepsis. Unsure the reason of the Cardizem, however patient could be on have atrial fibrillation. 2. Diabetic foot infection. Status post debridement performed by surgery today. Continue with IV meropenem. IV vancomycin was stopped due to "red man" syndrome. She was ordered 50 of Benadryl +50 of Vistaril 3 times daily as needed for pruritus. She reports this combination works for at home. She tried 50 mg of Benadryl this morning and reported no results. Additional alternative would be prednisone, and would like to avoid giving her already poor wound healing. Right-sided abscess wound culture positive for protease vulgaris. Gram-positive cocci clusters. 3. CKD. Creatinine has trended down from 2.66-1.95 since admission. 4. Hyper kalemia. Continues to be an issue. Since her blood pressure is slightly elevated. Start 20 mg of Lasix daily times 2 days.. Kayexalate 15 mg twice daily times 2 days. 5. Low magnesium. IV replacement ordered. 6. Diabetes. Monitor blood glucose. History of peripheral neuropathy.
[2018-10-01] MEDS ORDERED: FUROSEMIDE 20 MG TABLET PO SCH (18:00)
[2018-10-01] MEDS ORDERED: SODIUM POLYSTYRENE SULFONATE 15 GM/60 ML PO SCH (22:00)
[2018-10-01] MEDS: GABAPENTIN 300 MG CAPSULE PO SCH (22:19)
[2018-10-01] MEDS: ERTAPENEM SODIUM 0.5 GM in NORMAL SALINE 50 ML IV SCH (22:32)
[2018-10-01] MEDS: MAGNESIUM SULFATE 1 GM/D5W 100 ML IV SCH ×2 (22:33→23:28)
[2018-10-01] MEDS: INSULIN LISPRO 100 UNIT/ML 3 ML VIAL SUBCUT PRN (23:28)
[2018-10-02] MEDS: DIPHENHYDRAMINE HCL 50 MG CAPSULE PO PRN (04:32)
[2018-10-02 05:28] LABS: ABSOLUTE LYMPHOCYTES (AUTO) 0.8 10^3/uL (0.5-4.7); ABSOLUTE MONOCYTES (AUTO) 0.4 10^3/uL (0.1-1.4); ABSOLUTE NEUT (AUTO) 8.4 10^3/uL (1.7-8.2); BASOPHILS % (AUTO) 0.5 % (0-2); EOSINOPHILS % (AUTO) 0.1 % (0-6); HEMATOCRIT 31.5 % (36.0-47.0); HEMOGLOBIN 10.5 g/dL (12.0-15.5); LYMPHOCYTES % (AUTO) 8.4 % (13-45); MEAN CORPUSCULAR HEMOGLOBIN 30.5 pg (27.0-33.4); MEAN CORPUSCULAR HGB CONC 33.5 g/dL (32.0-36.0); MEAN CORPUSCULAR VOLUME 91 fl (80-97); PLATELET COUNT 313 10^3/uL (150-450); RED BLOOD COUNT 3.45 10^6/uL (3.72-5.28); RED CELL DISTRIBUTION WIDTH 15.6 % (11.5-14.0); TOTAL CELLS COUNTED % (AUTO) 100 %; WHITE BLOOD COUNT 9.7 10^3/uL (4.0-10.5)
[2018-10-02 05:54] LABS: ANION GAP 13 (5-19); BLOOD UREA NITROGEN 40 mg/dL (7-20); CALCIUM 9.6 mg/dL (8.4-10.2); CARBON DIOXIDE 18 mmol/L (22-30); CHLORIDE 108 mmol/L (98-107); GLUCOSE 194 mg/dL (75-110); POTASSIUM 5.9 mmol/L (3.6-5.0); SODIUM 139.2 mmol/L (137-145)
[2018-10-02] MEDS: HYDROCODONE/ACETAMINOPHEN 7.5-325 MG TABLET PO PRN ×3 (06:15→18:41)
[2018-10-02] MEDS: MAGNESIUM SULFATE/D5W 1 GM/100 ML RTUPB IV SCH (06:57)
--- NOTE | 2018-10-02 09:01 | PDOC PROGRESS REPORT ---
Subjective Progress Note for:: 10/02/18 Reason For Visit: HYPERKALEMIA,BRADYCARDIA Physical Exam Vital Signs: Temp Pulse Resp BP Pulse Ox 97.8 F 89 16 175/63 H 100 10/02/18 08:40 10/02/18 08:40 10/02/18 08:40 10/02/18 08:40 10/02/18 08:40 Intake & Output 10/01/18 10/02/18 10/03/18 06:59 06:59 06:59 Intake Total 999 3587 Output Total 1999 1105 Balance -1000 2482 Weight 69.3 kg 77.1 kg Vascular exam: PRESENT: normal capillary refill - rt foot dressing removed, lateral aspect clean,some granulation left foot, two small ulcers with clean base, redressed with xeroform. Results Laboratory Results: 10/02/18 04:35 10/02/18 04:35 10/02/18 10/02/18 04:35 04:35 WBC 9.7 RBC 3.45 L Hgb 10.5 L Hct 31.5 L MCV 91 MCH 30.5 MCHC 33.5 RDW 15.6 H Plt Count 313 Seg Neutrophils % 87.0 H Lymphocytes % 8.4 L Monocytes % 4.0 Eosinophils % 0.1 Basophils % 0.5 Absolute Neutrophils 8.4 H Absolute Lymphocytes 0.8 Absolute Monocytes 0.4 Absolute Eosinophils 0.0 Absolute Basophils 0.0 Sodium 139.2 Potassium 5.9 H Chloride 108 H Carbon Dioxide 18 L Anion Gap 13 BUN 40 H Creatinine 2.13 H Est GFR ( Amer) 29 L Est GFR (Non-Af Amer) 24 L Glucose 194 H Calcium 9.6 09/29/18 09/29/18 12:22 12:22 Creatine Kinase 135 Troponin I < 0.012 Impressions: Chest X-Ray 09/29/18 14:10 IMPRESSION: NO ACUTE RADIOGRAPHIC FINDING IN THE CHEST. Assessment & Plan - Inpatient Certification Medical Necessity: Significant Comorbidiites Make Outpatient Treatment Too Risky, Need for IV Antibiotics - Plan Summary Plan Summary: s/p debridment of rt and left foot diabetic ulcers wounds clean will start bid dressing changes on rt and lt foot dressing changes
[2018-10-02] MEDS: DOCUSATE SODIUM 100 MG CAPSULE PO SCH ×2 (09:24→23:47)
[2018-10-02] MEDS: CARVEDILOL 3.125 MG TABLET PO SCH ×2 (09:24→23:47)
[2018-10-02] MEDS: DILTIAZEM HCL 60 MG TABLET PO SCH ×2 (09:24→23:46)
[2018-10-02] MEDS: GABAPENTIN 300 MG CAPSULE PO SCH ×2 (09:25→23:47)
[2018-10-02] MEDS: MORPHINE SULFATE 10 MG/ML INJ IV PRN ×4 (09:25→18:40)
[2018-10-02] MEDS: FUROSEMIDE 20 MG TABLET PO SCH (09:25)
--- NOTE | 2018-10-02 18:21 | PDOC PROGRESS REPORT ---
Subjective Progress Note for:: 10/02/18 Subjective:: This is a very pleasant 57 years old female patient admitted for hypotension and bradycardia after she inadvertently overdosed herself with Cardizem. Currently her blood pressure and heart rate has normalized. During her stay patient also found to have diabetic foot ulcer which is infected and her wound wound culture grew gram-positive cocci in cluster and Proteus vulgaris. She has been on ertapenem which I switched her to ceftriaxone since the organism is sensitive to this antibiotic. Morning I seen patient sitting on chair and enjoying her breakfast. She is awake alert oriented and she is not in pain or distress. Reason For Visit: HYPERKALEMIA,BRADYCARDIA Physical Exam Vital Signs: Temp Pulse Resp BP Pulse Ox 97.8 F 89 16 175/63 H 100 10/02/18 08:40 10/02/18 08:40 10/02/18 08:40 10/02/18 08:40 10/02/18 08:40 Intake & Output 10/01/18 10/02/18 10/03/18 06:59 06:59 06:59 Intake Total 1000 3587 Output Total 2000 1105 Balance -1000 2482 Weight 69.3 kg 77.1 kg General appearance: PRESENT: no acute distress Head exam: PRESENT: atraumatic Neck exam: ABSENT: carotid bruit, JVD, lymphadenopathy, thyromegaly Respiratory exam: PRESENT: clear to auscultation amber. ABSENT: rales, rhonchi, wheezes Cardiovascular exam: PRESENT: RRR. ABSENT: diastolic murmur, rubs, systolic murmur GI/Abdominal exam: PRESENT: normal bowel sounds, soft. ABSENT: distended, guarding, mass, organolmegaly, rebound, tenderness Extremities exam: PRESENT: other - Both feet are dressed Neurological exam: PRESENT: alert, awake, oriented to time, oriented to situation Results Laboratory Results: 10/02/18 04:35 10/02/18 04:35 10/02/18 10/02/18 04:35 04:35 WBC 9.7 RBC 3.45 L Hgb 10.5 L Hct 31.5 L MCV 91 MCH 30.5 MCHC 33.5 RDW 15.6 H Plt Count 313 Seg Neutrophils % 87.0 H Lymphocytes % 8.4 L Monocytes % 4.0 Eosinophils % 0.1 Basophils % 0.5 Absolute Neutrophils 8.4 H Absolute Lymphocytes 0.8 Absolute Monocytes 0.4 Absolute Eosinophils 0.0 Absolute Basophils 0.0 Sodium 139.2 Potassium 5.9 H Chloride 108 H Carbon Dioxide 18 L Anion Gap 13 BUN 40 H Creatinine 2.13 H Est GFR ( Amer) 29 L Est GFR (Non-Af Amer) 24 L Glucose 194 H Calcium 9.6 09/29/18 09/29/18 12:22 12:22 Creatine Kinase 135 Troponin I < 0.012 Impressions: Chest X-Ray 09/29/18 14:10 IMPRESSION: NO ACUTE RADIOGRAPHIC FINDING IN THE CHEST. Assessment & Plan - Diagnosis (1) Bradycardia Is this a current diagnosis for this admission?: Yes Plan: Has resolved (2) Diabetic foot infection Is this a current diagnosis for this admission?: Yes Plan: Continue wound care and ceftriaxone. (3) Stage 3 chronic kidney disease due to type 2 diabetes mellitus Is this a current diagnosis for this admission?: Yes Plan: We will avoid nephrotoxic agents will hydrate her cautiously. (4) Type 2 diabetes mellitus Is this a current diagnosis for this admission?: Yes Plan: Continue current regimen (5) Hypertension Qualifiers: Hypertension type: essential hypertension Qualified Code(s): I10 - Essential (primary) hypertension Is this a current diagnosis for this admission?: Yes Plan: Continue home med (6) Hyperlipidemia Qualifiers: Hyperlipidemia type: unspecified Qualified Code(s): E78.5 - Hyperlipidemia, unspecified Is this a current diagnosis for this admission?: Yes Plan: Continue current treatment.
[2018-10-02] MEDS: PATIROMER 8.4 GM SUSP PACKET PO SCH (20:24)
[2018-10-02] MEDS ORDERED: CEFTRIAXONE SODIUM 2,000 MG in DEXTROSE 5%-WATER 100 ML IV SCH (22:00)
[2018-10-02] MEDS: INSULIN LISPRO 100 UNIT/ML 3 ML VIAL SUBCUT PRN (22:13)
[2018-10-03] MEDS: HYDROCODONE/ACETAMINOPHEN 7.5-325 MG TABLET PO PRN ×2 (01:06→07:41)
[2018-10-03 05:49] LABS: ANION GAP 10 (5-19); BLOOD UREA NITROGEN 40 mg/dL (7-20); CALCIUM 9.1 mg/dL (8.4-10.2); CARBON DIOXIDE 18 mmol/L (22-30); CHLORIDE 112 mmol/L (98-107); GLUCOSE 175 mg/dL (75-110); POTASSIUM 5.1 mmol/L (3.6-5.0); SODIUM 139.9 mmol/L (137-145)
[2018-10-03] MEDS: INSULIN LISPRO 100 UNIT/ML 3 ML VIAL SUBCUT PRN ×2 (09:04→13:28)
[2018-10-03] MEDS ORDERED: CEFTRIAXONE 2 GM/D5W RTU 2 GM/50 ML RTUPB IV SCH (10:00)
[2018-10-03] MEDS ORDERED: SODIUM POLYSTYRENE SULFONATE 15 GM/60 ML PO ONE (10:05)
--- NOTE | 2018-10-03 10:13 | PDOC DISCHARGE SUMMARY ---
General - Admit/Disc Date/PCP Admission Date/Primary Care Provider: 09/29/18 15:11 ELIZ FAGAN PA-C Discharge Date: 10/03/18 - Discharge Diagnosis (1) Hyperkalemia Is this a current diagnosis for this admission?: Yes (2) Bradycardia Is this a current diagnosis for this admission?: Yes (3) Diabetic foot infection Is this a current diagnosis for this admission?: Yes (4) Stage 3 chronic kidney disease due to type 2 diabetes mellitus Is this a current diagnosis for this admission?: Yes (5) Type 2 diabetes mellitus Is this a current diagnosis for this admission?: Yes (6) Hypertension Is this a current diagnosis for this admission?: Yes (7) Hyperlipidemia Is this a current diagnosis for this admission?: Yes - Additional Information Resuscitation Status: Do Not Resuscitate Home Medications: Carvedilol [Coreg 6.25 mg Tablet] 6.25 mg PO Q12 09/29/18 Clobetasol Propionate [Temovate Ointment] 1 applic TP BIDP PRN 09/29/18 Diltiazem HCl [Tiazac] 240 mg PO Q12 09/29/18 Gabapentin [Neurontin 300 mg Capsule] 300 mg PO TID 09/29/18 Glimepiride [Amaryl] 2 mg PO DAILY 09/29/18 Hydroxyzine HCl [Atarax 25 mg Tablet] 1 tab PO QID 09/29/18 Lisinopril [Prinivil] 20 mg PO DAILY 09/29/18 Ondansetron [Zofran Odt 4 mg Tablet] 8 mg PO Q6HP PRN 09/29/18 Tramadol HCl [Ultram 50 mg Tablet] 50 mg PO Q6HP PRN 09/29/18 Hydrocodone/Acetaminophen [[place] 7.5-325 mg Tablet] 1 tab PO Q6HP PRN 09/30/18 History of Present Illness History of Present Illness: RAYMOND PACHECO is a 57 year old female on multiple medications including Cardizem 180, she forgot to take her medications yesterday therefore she took 2 tablets around 3:00 PM, prior to arrival she was having dizziness and one time she passed out. Briefly has been found on the floor and brought her to the ED. There were no head injury. The noted her pulse to be around 30 and b lood pressure was 90 systole. Currently denies any headache denies any dizziness while sitting, denies any focal weakness numbness tingling sensation. Denies any fever chills or other constitutional symptoms] Hospital Course Hospital Course: This is a very pleasant 57 years old female patient admitted for hypotension and bradycardia after she inadvertently overdosed herself with Cardizem. Currently her blood pressure and heart rate has normalized. At presentation patient also found to be hyperkalemic with potassium of 6.9 and today on the day of discharge her potassium is 5.1 and patient will be given a dose of Kayexalate. During her stay patient also found to have diabetic foot ulcer which is infected and her wound culture grew gram-positive cocci in cluster and Proteus vulgaris. She has been on ertapenem which I switched her to ceftriaxone since the organism is sensitive to this antibiotic. This morning I seen patient sitting at the bedside and chatting with her . She reports she feels much better. She is awake alert oriented. Her vital signs are within normal limits. Patient is stable enough to be discharged today. I will continue all her medication except her lisinopril which is contraindicated in patient with hyperkalemia. Physical Exam Vital Signs: Temp Pulse Resp BP Pulse Ox 98.1 F 70 16 139/64 H 97 10/03/18 07:39 10/03/18 07:39 10/03/18 07:39 10/03/18 07:39 10/03/18 07:39 Intake & Output 10/02/18 10/03/18 10/04/18 06:59 06:59 06:59 Intake Total 3587 1106 Output Total 1105 3300 Balance 2482 -2194 Weight 77.1 kg 77 kg General appearance: PRESENT: no acute distress Head exam: PRESENT: atraumatic Eye exam: PRESENT: conjunctiva pink Mouth exam: PRESENT: moist Respiratory exam: PRESENT: clear to auscultation amber. ABSENT: rales, rhonchi, wheezes Cardiovascular exam: PRESENT: RRR. ABSENT: diastolic murmur, rubs, systolic murmur GI/Abdominal exam: PRESENT: normal bowel sounds, soft. ABSENT: distended, guarding, mass, organolmegaly, rebound, tenderness Neurological exam: PRESENT: alert, awake, oriented to time, oriented to situation Psychiatric exam: PRESENT: normal mood Results Laboratory Results: 10/02/18 04:35 10/03/18 04:47 10/03/18 04:47 Sodium 139.9 Potassium 5.1 H Chloride 112 H Carbon Dioxide 18 L Anion Gap 10 BUN 40 H Creatinine 2.17 H Est GFR ( Amer) 28 L Est GFR (Non-Af Amer) 23 L Glucose 175 H Calcium 9.1 09/29/18 09/29/18 12:22 12:22 Creatine Kinase 135 Troponin I < 0.012 Impressions: Chest X-Ray 09/29/18 14:10 IMPRESSION: NO ACUTE RADIOGRAPHIC FINDING IN THE CHEST. Qualifiers - * PATIENT BEING DISCHARGED WITH ANY OF THE FOLLOWING DIAGNOSIS: No
[2018-10-03] MEDS: DILTIAZEM HCL 60 MG TABLET PO SCH (10:21)
[2018-10-03] MEDS: DOCUSATE SODIUM 100 MG CAPSULE PO SCH (10:22)
[2018-10-03] MEDS: GABAPENTIN 300 MG CAPSULE PO SCH (10:22)
[2018-10-03] MEDS: CARVEDILOL 3.125 MG TABLET PO SCH (10:22)
[2018-10-03] MEDS: FUROSEMIDE 20 MG TABLET PO SCH (10:22)
[2018-10-03] MEDS ORDERED: PATIROMER 8.4 GM SUSP PACKET PO ONE ×2 (11:30→14:00)
[2018-10-03 12:35] VITALS: BP 142/53
--- NOTE | 2018-10-03 13:11 | PDOC PROGRESS REPORT ---
Subjective Progress Note for:: 10/03/18 Subjective:: No c/o Reason For Visit: HYPERKALEMIA,BRADYCARDIA Physical Exam Vital Signs: Temp Pulse Resp BP Pulse Ox 98.1 F 70 16 148/62 H 97 10/03/18 11:55 10/03/18 11:55 10/03/18 11:55 10/03/18 11:55 10/03/18 11:55 Intake & Output 10/02/18 10/03/18 10/04/18 06:59 06:59 06:59 Intake Total 3587 1106 Output Total 1101 3300 Balance 2482 -2194 Weight 77.1 kg 77 kg General appearance: PRESENT: no acute distress Neurological exam: PRESENT: motor sensory deficit - both feet Skin exam: PRESENT: other - R foot= large, granulating wound lateral plantar aspect with Robin drain through it and exting other side of plantar surface medially, minimal serous drainage, no odor, stiffness of tissues; L foot= two small skin ulcerations to subcutaneous tissue (heel and toe) Results Laboratory Results: 10/02/18 04:35 10/03/18 04:47 10/03/18 04:47 Sodium 139.9 Potassium 5.1 H Chloride 112 H Carbon Dioxide 18 L Anion Gap 10 BUN 40 H Creatinine 2.17 H Est GFR ( Amer) 28 L Est GFR (Non-Af Amer) 23 L Glucose 175 H Calcium 9.1 09/29/18 09/29/18 12:22 12:22 Creatine Kinase 135 Troponin I < 0.012 Impressions: Chest X-Ray 09/29/18 14:10 IMPRESSION: NO ACUTE RADIOGRAPHIC FINDING IN THE CHEST. Assessment & Plan - Diagnosis (1) Diabetic foot infection Is this a current diagnosis for this admission?: Yes - Plan Summary Plan Summary: A/ S/p I&D right foot plantar abscess wtih [place] drain placement wound overall clean, granulating, no evidence of active infection P/ OK to discharge today by General Surgery viewpoint Daily NS wet-to-dry dressing changes right foot Right foot weight bearing on heel only Follow-up with General Surgery Clinic with IVY Best in 1 week Follow-up with home Health for daily home dressing changes Patient to change dressings when Home Health nurse cannot come to her house
== END 2018-10-03 14:12 | disposition home health service (06) | DRG 902 ==
LOC: ER 12:11 → EH 15:11 → ICU 21:38 → 3W 10-01 06:47
PROVIDERS: ADMIT Internal Medicine; ATTEND Internal Medicine
PROC: 0JDR3ZZ Extraction of Left Foot Subcutaneous Tissue and Fascia, Percutaneous Approach (ICD-10-PCS; 2018-10-01)
PROC: 0LBV0ZZ Excision of Right Foot Tendon, Open Approach (ICD-10-PCS; 2018-10-01)
PROC: 0JDQ0ZZ Extraction of Right Foot Subcutaneous Tissue and Fascia, Open Approach (ICD-10-PCS; 2018-10-01)
PROC: 0HDMXZZ Extraction of Right Foot Skin, External Approach (ICD-10-PCS; 2018-10-01)
PROC: 0HBRXZZ Excision of Toe Nail, External Approach (ICD-10-PCS; 2018-10-01)
PROC: 0JBR0ZZ Excision of Left Foot Subcutaneous Tissue and Fascia, Open Approach (ICD-10-PCS; principal; 2018-10-01 09:45)
DX: T46.1X1A Poisoning by calcium-channel blockers, accidental (unintentional), initial encounter (principal); L97.429 Non-pressure chronic ulcer of left heel and midfoot with unspecified severity; N18.4 Chronic kidney disease, stage 4 (severe); N17.9 Acute kidney failure, unspecified; G25.82 Stiff-man syndrome; L97.421 Non-pressure chronic ulcer of left heel and midfoot limited to breakdown of skin; I95.2 Hypotension due to drugs; Z66 Do not resuscitate; Y92.019 Unspecified place in single-family (private) house as the place of occurrence of the external cause; E87.5 Hyperkalemia; R00.1 Bradycardia, unspecified; B96.4 Proteus (mirabilis) (morganii) as the cause of diseases classified elsewhere; B95.62 Methicillin resistant Staphylococcus aureus infection as the cause of diseases classified elsewhere; E11.22 Type 2 diabetes mellitus with diabetic chronic kidney disease; I12.9 Hypertensive chronic kidney disease with stage 1 through stage 4 chronic kidney disease, or unspecified chronic kidney disease; E78.00 Pure hypercholesterolemia, unspecified; E11.621 Type 2 diabetes mellitus with foot ulcer; L97.519 Non-pressure chronic ulcer of other part of right foot with unspecified severity; L40.50 Arthropathic psoriasis, unspecified; E11.42 Type 2 diabetes mellitus with diabetic polyneuropathy; L60.0 Ingrowing nail; Z90.49 Acquired absence of other specified parts of digestive tract; L97.521 Non-pressure chronic ulcer of other part of left foot limited to breakdown of skin; Z87.891 Personal history of nicotine dependence; Z79.899 Other long term (current) drug therapy; Z88.8 Allergy status to other drugs, medicaments and biological substances; Z83.3 Family history of diabetes mellitus; Z82.49 Family history of ischemic heart disease and other diseases of the circulatory system
CPT/HCPCS: 01480; 36415; 71045; 80048; 80053; 82550; 82962; 83735; 84484; 85025; 85027; 87040; 87070; 87075; 87077; 87186; 87205; 93005; 93010; 96361; 96374; 96375; 99291; J0610; J0696; J1100; J1200; J1335; J1644; J1815; J2250; J2270; J2405; J2704; J3010; J3370; J3475; J3490; J7030; J7060

== ENCOUNTER → 2018-10-18 | Outpatient (CLI) | payer MEDICARE ==
[2018-10-18 11:29] LABS: ABSOLUTE BASOPHILS # (AUTO) 0.1 10^3/uL (0.0-0.2); ABSOLUTE EOSINOPHILS # (AUTO) 0.5 10^3/uL (0.0-0.6); ABSOLUTE LYMPHOCYTES (AUTO) 1.9 10^3/uL (0.5-4.7); ABSOLUTE MONOCYTES (AUTO) 1.1 10^3/uL (0.1-1.4); ABSOLUTE NEUT (AUTO) 6.1 10^3/uL (1.7-8.2); BASOPHILS % (AUTO) 1.2 % (0-2); EOSINOPHILS % (AUTO) 5.1 % (0-6); HEMATOCRIT 28.7 % (36.0-47.0); HEMOGLOBIN 9.6 g/dL (12.0-15.5); MEAN CORPUSCULAR HGB CONC 33.5 g/dL (32.0-36.0); MEAN CORPUSCULAR VOLUME 92 fl (80-97); MONOCYTES % (AUTO) 10.9 % (3-13); PLATELET COUNT 298 10^3/uL (150-450); RED BLOOD COUNT 3.11 10^6/uL (3.72-5.28); RED CELL DISTRIBUTION WIDTH 15.9 % (11.5-14.0); SEGMENTED NEUTROPHILS % (AUTO) 62.8 % (42-78); TOTAL CELLS COUNTED % (AUTO) 100 %; WHITE BLOOD COUNT 9.7 10^3/uL (4.0-10.5)
[2018-10-18 11:48] LABS: ALANINE AMINOTRANSFERASE 29 U/L (9-52); ALBUMIN 4.4 g/dL (3.5-5.0); ALKALINE PHOSPHATASE 166 U/L (38-126); ANION GAP 13 (5-19); ASPARTATE AMINO TRANSFERASE 21 U/L (14-36); BILIRUBIN,DIRECT 0.3 mg/dL (0.0-0.4); BILIRUBIN,TOTAL 0.5 mg/dL (0.2-1.3); BLOOD UREA NITROGEN 35 mg/dL (7-20); C-REACTIVE PROTEIN 47.3 mg/L (<10.0); CALCIUM 8.8 mg/dL (8.4-10.2); CARBON DIOXIDE 22 mmol/L (22-30); CHLORIDE 107 mmol/L (98-107); GLUCOSE 75 mg/dL (75-110); SODIUM 142.2 mmol/L (137-145); TOTAL PROTEIN 8.1 g/dL (6.3-8.2)
[2018-10-18 12:40] LABS: ERYTHROCYTE SEDIMENTATION RATE 120 mm/hr (0-30)
--- NOTE | 2018-10-18 15:01 | RADIOLOGY REPORT (SQ) ---
EXAM DESCRIPTION: FOOT BILATERAL 3 VIEWS COMPLETED DATE/TIME: 10/18/2018 2:47 pm REASON FOR STUDY: NON-PRS CHRONIC ULCER OTH PRT BILAT FOOT W FAT LAYER EXPOSED (L97.512)(L97. L97.51 2 NON-PRS CHRONIC ULCER OTH PRT RIGHT FOOT W FAT LAYER L97.522 NON-PRS CHRONIC ULCER OTH PRT LEFT F OOT W FAT LAYER E11.621 TYPE 2 DIABETES MELLITUS WITH FOOT ULCER COMPARISON: None. NUMBER OF VIEWS: Three views. TECHNIQUE: AP, lateral and oblique radiographic images acquired of the right and left foot. LIMITATIONS: None. FINDINGS: RIGHT MINERALIZATION: Overall normal bone density BONES: Diffuse periosteal new bone throughout the 5th metatarsal with bony resorption of the 5th meta tarsal head and proximal phalanx 5th toe. This most likely represents osteomyelitis. Plantar and do rsal calcaneal spurs are present. JOINTS: No effusions. SOFT TISSUES: Large soft tissue ulcer along the lateral aspect of the right foot, paralleling the 5th metatarsal. Diffuse forefoot soft tissue swelling without soft tissue gas OTHER: No other significant finding. LEFT MINERALIZATION: Overall normal bone density BONES: No acute fracture. Plantar and dorsal calcaneal spurs with fragmentation along the plantar ca lcaneal spurs from old healed fractures. No calcaneal or great toe periosteal new bone to suggest os teomyelitis JOINTS: No effusions. SOFT TISSUES: Calcaneal plantar ulcer without radiopaque foreign body or soft tissue gas. Small ulce r along the medial left great toe interphalangeal joint region. OTHER: No other significant finding. IMPRESSION: Ulcer right lateral foot with abnormal 5th metatarsal and 5th toe phalanges worrisome fo r osteomyelitis. Left foot plantar and great toe ulcers without bony changes to suggest osteomyelitis TECHNICAL DOCUMENTATION: JOB ID: [id number] [employer]- All Rights Reserved Reading location - IP/workstation name: [email or web address]
--- NOTE | 2018-10-21 13:38 | XCELERA REPORT ---
[address] [address] Lower Extremity Arterial Evaluation Name: RAYMOND PACHECO Age: 57 yrs Gender: Female : 1960 Patient Status: Outpatient Patient Location: Study Date: 10/18/2018 03:03 PM Procedure: A color flow and duplex scan of the lower extremity arteries was performed bilaterally with velocity and waveform anaylsis. Ankle brachial indicies performed. Reason For Study: ULCER Ordering Physician: MARCELINA NEVILLE Performed By: Tiny Romero Measurements and Calculations Right Left QUENCHER OPERATOR PSV 258.2 177.8 cm/sec Prox PFA PSV -427.8 -160.1cm/sec Prox SFA PSV -134.8 169.9 cm/sec Mid SFA PSV -153.2 -438.7cm/sec Dist SFA PSV -245.1 -104.8cm/sec Prox Pop A PSV 107.1 172.0 cm/sec Dist CHECO PSV 99.7 70.5 cm/sec Prox DINING ROOM SERVER PSV 34.2 cm/sec Dist DINING ROOM SERVER PSV 39.0 32.3 cm/sec Alex Pedis PSV 68.8 72.7 cm/sec Right Side Arterial Evaluation Normal velocity and triphasic waveforms noted in the Common Femoral artery. Triphasic with greater than 2 x velocity in the Deep Femoral, indicating high grade stenosis. Biphasic with normal velocity to the infrageniculate vessels . Ankle Brachial index 0.79. Left Side Arterial Evaluation Normal velocity and triphasic waveforms noted in the Common Femoral artery. Greater than 2 x increase in velocity in the Femoral, indicating high grade stenosis. Biphasic with normal velocity form Popliteal to the Anterior Tibial. Monophasic with low normal velocity in the Posterior Tibial artery . Ankle Brachial index 0.57. Interpretation Summary Moderate hemodynamically significant lesions in the right lower extremity only, on duplex imaging, at rest. More complex multilevel disease on the left, in the Femoral and Posterior tibial arteries. : MARCELINA NEVILLE > [employer]re[employer]
== END ==
LOC: SP 14:14
PROVIDERS: ATTEND Nurse Practitioner
DX: E11.621 Type 2 diabetes mellitus with foot ulcer (principal); L97.512 Non-pressure chronic ulcer of other part of right foot with fat layer exposed; L97.522 Non-pressure chronic ulcer of other part of left foot with fat layer exposed
CPT/HCPCS: 36415; 80053; 83036; 85025; 85652; 86140; 93925

== ENCOUNTER → 2018-11-14 | Outpatient (CLI) | payer MEDICARE ==
[2018-11-14 10:28] LABS: ABSOLUTE BASOPHILS # (AUTO) 0.1 10^3/uL (0.0-0.2); ABSOLUTE EOSINOPHILS # (AUTO) 0.5 10^3/uL (0.0-0.6); ABSOLUTE LYMPHOCYTES (AUTO) 2.3 10^3/uL (0.5-4.7); ABSOLUTE MONOCYTES (AUTO) 1.1 10^3/uL (0.1-1.4); ABSOLUTE NEUT (AUTO) 5.1 10^3/uL (1.7-8.2); BASOPHILS % (AUTO) 1.4 % (0-2); EOSINOPHILS % (AUTO) 5.6 % (0-6); HEMATOCRIT 29.6 % (36.0-47.0); HEMOGLOBIN 9.9 g/dL (12.0-15.5); LYMPHOCYTES % (AUTO) 25.4 % (13-45); MEAN CORPUSCULAR HEMOGLOBIN 30.8 pg (27.0-33.4); MEAN CORPUSCULAR HGB CONC 33.5 g/dL (32.0-36.0); MEAN CORPUSCULAR VOLUME 92 fl (80-97); MONOCYTES % (AUTO) 11.6 % (3-13); PLATELET COUNT 357 10^3/uL (150-450); RED BLOOD COUNT 3.22 10^6/uL (3.72-5.28); RED CELL DISTRIBUTION WIDTH 15.4 % (11.5-14.0); TOTAL CELLS COUNTED % (AUTO) 100 %; WHITE BLOOD COUNT 9.1 10^3/uL (4.0-10.5)
[2018-11-14 11:00] LABS: ALANINE AMINOTRANSFERASE 20 U/L (9-52); ALBUMIN 3.9 g/dL (3.5-5.0); ALKALINE PHOSPHATASE 138 U/L (38-126); ANION GAP 15 (5-19); ASPARTATE AMINO TRANSFERASE 17 U/L (14-36); BILIRUBIN,DIRECT 0.3 mg/dL (0.0-0.4); BILIRUBIN,TOTAL 0.3 mg/dL (0.2-1.3); BLOOD UREA NITROGEN 36 mg/dL (7-20); C-REACTIVE PROTEIN 35.1 mg/L (<10.0); CALCIUM 9.2 mg/dL (8.4-10.2); CARBON DIOXIDE 14 mmol/L (22-30); CHLORIDE 111 mmol/L (98-107); GLUCOSE 100 mg/dL (75-110); POTASSIUM 5.4 mmol/L (3.6-5.0); SODIUM 140.2 mmol/L (137-145); TOTAL PROTEIN 7.4 g/dL (6.3-8.2)
[2018-11-14 11:09] LABS: ERYTHROCYTE SEDIMENTATION RATE 107 mm/hr (0-30)
--- NOTE | 2018-11-14 13:24 | RADIOLOGY REPORT (SQ) ---
EXAM DESCRIPTION: FOOT BILATERAL 3 VIEWS COMPLETED DATE/TIME: 11/14/2018 10:53 am REASON FOR STUDY: NON-PRESSURE ULCER OF OTHER PART OF RIGHT/LEFT FOOT (L97.512/L97.522) L97.512 NON -PRS CHRONIC ULCER OTH PRT RIGHT FOOT W FAT LAYER COMPARISON: 10/18/2018 NUMBER OF VIEWS: Three views. TECHNIQUE: AP, lateral and oblique radiographic images acquired of the right and left foot. LIMITATIONS: None. FINDINGS: MINERALIZATION: Normal. BONES: Stable osseous findings in the right 5th metatarsal and 5th proximal phalanx. There is resorp tion of the head of the 5th metatarsal and the 5th proximal phalanx. There is some ill-defined subpe riosteal new bone along the right 5th metatarsal. Plantar and dorsal calcaneal spurs on the left. JOINTS: No effusions. SOFT TISSUES: There appears to be an ulcer along the 5th metatarsal on the right. Left great toe ulc er. OTHER: No other significant finding. IMPRESSION: Possible osteomyelitis involving the right 5th metatarsal. Findings stable. Calcaneal spurs on the left. Soft tissue abnormalities as described. TECHNICAL DOCUMENTATION: JOB ID: [id number] [employer]- All Rights Reserved Reading location - IP/workstation name: [email or web address]
== END ==
LOC: WC 10:05
PROVIDERS: ATTEND Preventive Medicine Undersea and Hyperbaric Medicine
DX: L97.512 Non-pressure chronic ulcer of other part of right foot with fat layer exposed (principal); L97.522 Non-pressure chronic ulcer of other part of left foot with fat layer exposed
CPT/HCPCS: 36415; 80053; 85025; 85652; 86140

== ENCOUNTER → 2018-12-25 | Outpatient (CLI) | payer MEDICARE ==
--- NOTE | 2018-12-25 14:04 | RADIOLOGY REPORT (SQ) ---
EXAM DESCRIPTION: FOOT BILATERAL 3 VIEWS COMPLETED DATE/TIME: 12/25/2018 1:48 pm REASON FOR STUDY: NON-PRS CHRONIC ULCER OTH PRT LEFT and right FOOT W FAT LAYER EXPOSED L97.512 NON -PRS CHRONIC ULCER OTH PRT RIGHT FOOT W FAT LAYER L97.522 NON-PRS CHRONIC ULCER OTH PRT LEFT FOOT W FAT LAYER E11.621 TYPE 2 DIABETES MELLITUS WITH FOOT ULCER COMPARISON: 11/14/2018 NUMBER OF VIEWS: Three views. TECHNIQUE: AP, lateral and oblique radiographic images acquired of the right and left foot. LIMITATIONS: None. FINDINGS: MINERALIZATION: Normal. BONES: Stable osseous changes involving the right 5th metatarsal and 5th digit. Bilateral calcaneal spurs. JOINTS: No effusions. SOFT TISSUES: No soft tissue swelling. No foreign body. OTHER: No other significant finding. IMPRESSION: Stable findings as described. TECHNICAL DOCUMENTATION: JOB ID: [id number] [employer]- All Rights Reserved Reading location - IP/workstation name: [email or web address]
[2018-12-25 14:12] LABS: ABSOLUTE BASOPHILS # (AUTO) 0.1 10^3/uL (0.0-0.2); ABSOLUTE EOSINOPHILS # (AUTO) 0.5 10^3/uL (0.0-0.6); ABSOLUTE LYMPHOCYTES (AUTO) 1.6 10^3/uL (0.5-4.7); ABSOLUTE MONOCYTES (AUTO) 0.6 10^3/uL (0.1-1.4); ABSOLUTE NEUT (AUTO) 4.5 10^3/uL (1.7-8.2); BASOPHILS % (AUTO) 1.3 % (0-2); EOSINOPHILS % (AUTO) 7.1 % (0-6); HEMATOCRIT 29.4 % (36.0-47.0); HEMOGLOBIN 9.7 g/dL (12.0-15.5); LYMPHOCYTES % (AUTO) 21.5 % (13-45); MEAN CORPUSCULAR HEMOGLOBIN 30.4 pg (27.0-33.4); MEAN CORPUSCULAR HGB CONC 32.9 g/dL (32.0-36.0); MEAN CORPUSCULAR VOLUME 92 fl (80-97); MONOCYTES % (AUTO) 8.3 % (3-13); PLATELET COUNT 262 10^3/uL (150-450); RED BLOOD COUNT 3.18 10^6/uL (3.72-5.28); SEGMENTED NEUTROPHILS % (AUTO) 61.8 % (42-78); TOTAL CELLS COUNTED % (AUTO) 100 %; WHITE BLOOD COUNT 7.3 10^3/uL (4.0-10.5)
[2018-12-25 14:51] LABS: ERYTHROCYTE SEDIMENTATION RATE 112 mm/hr (0-30)
[2018-12-25 14:53] LABS: ALANINE AMINOTRANSFERASE 10 U/L (9-52); ALBUMIN 3.7 g/dL (3.5-5.0); ALKALINE PHOSPHATASE 121 U/L (38-126); ANION GAP 11 (5-19); ASPARTATE AMINO TRANSFERASE 13 U/L (14-36); BILIRUBIN,DIRECT 0.3 mg/dL (0.0-0.4); BILIRUBIN,TOTAL 0.3 mg/dL (0.2-1.3); BLOOD UREA NITROGEN 41 mg/dL (7-20); C-REACTIVE PROTEIN 55.1 mg/L (<10.0); CALCIUM 9.3 mg/dL (8.4-10.2); CARBON DIOXIDE 17 mmol/L (22-30); CHLORIDE 111 mmol/L (98-107); GLUCOSE 113 mg/dL (75-110); SODIUM 139.4 mmol/L (137-145); TOTAL PROTEIN 7.8 g/dL (6.3-8.2)
== END ==
LOC: RAD 13:06
PROVIDERS: ATTEND Preventive Medicine Undersea and Hyperbaric Medicine
DX: E11.621 Type 2 diabetes mellitus with foot ulcer (principal); L97.512 Non-pressure chronic ulcer of other part of right foot with fat layer exposed; L97.522 Non-pressure chronic ulcer of other part of left foot with fat layer exposed
CPT/HCPCS: 36415; 80053; 83036; 85025; 85652; 86140

== ENCOUNTER → 2019-01-11 | Outpatient (CLI) | payer MEDICARE ==
[2019-01-11 13:09] LABS: HEMATOCRIT 28.7 % (36.0-47.0); HEMOGLOBIN 9.6 g/dL (12.0-15.5); MEAN CORPUSCULAR HEMOGLOBIN 30.7 pg (27.0-33.4); MEAN CORPUSCULAR HGB CONC 33.5 g/dL (32.0-36.0); MEAN CORPUSCULAR VOLUME 92 fl (80-97); PLATELET COUNT 234 10^3/uL (150-450); RED BLOOD COUNT 3.13 10^6/uL (3.72-5.28); RED CELL DISTRIBUTION WIDTH 14.9 % (11.5-14.0)
[2019-01-11 13:36] LABS: ANION GAP 14 (5-19); BLOOD UREA NITROGEN 23 mg/dL (7-20); CALCIUM 9.2 mg/dL (8.4-10.2); CARBON DIOXIDE 21 mmol/L (22-30); CHLORIDE 107 mmol/L (98-107); GLUCOSE 165 mg/dL (75-110); IRON(TIBC) 89.3 ug/dL (37-170); PHOSPHORUS 4.5 mg/dL (2.5-4.5); POTASSIUM 4.4 mmol/L (3.6-5.0); SODIUM 141.8 mmol/L (137-145)
== END ==
LOC: LAB 12:48
PROVIDERS: ATTEND Internal Medicine Nephrology
DX: I12.9 Hypertensive chronic kidney disease with stage 1 through stage 4 chronic kidney disease, or unspecified chronic kidney disease (principal); N18.4 Chronic kidney disease, stage 4 (severe); R80.9 Proteinuria, unspecified; D64.9 Anemia, unspecified
CPT/HCPCS: 36415; 80048; 82728; 83540; 83550; 83735; 83970; 84100; 85027

== ENCOUNTER → 2019-02-21 | Outpatient (CLI) | payer MEDICARE ==
--- NOTE | 2019-02-21 15:34 | RADIOLOGY REPORT (SQ) ---
EXAM DESCRIPTION: FOOT BILATERAL 3 VIEWS COMPLETED DATE/TIME: 02/21/2019 1:06 pm REASON FOR STUDY: L97.522 NON PRESSURE CHRONIC ULCER OF OTHER PART OF LEFT FOOT WITH FAT LAYE COMPARISON: 12/25/2018. NUMBER OF VIEWS: Three views. TECHNIQUE: AP, lateral and oblique radiographic images acquired of the right and left foot. LIMITATIONS: None. FINDINGS: RIGHT FOOT: MINERALIZATION: Normal. BONES: No acute fracture or dislocation. Prominent heel spurs. Stable sclerosis of the 5th metatars al with periosteal reaction and distal resorption. JOINTS: No effusions. SOFT TISSUES: No soft tissue swelling. No foreign body. OTHER: No other significant finding. LEFT FOOT: MINERALIZATION: Normal. BONES: No acute fracture or dislocation. Prominent heel spurs. No worrisome bone lesions. JOINTS: No effusions. SOFT TISSUES: No soft tissue swelling. No foreign body. OTHER: No other significant finding. IMPRESSION: STABLE APPEARANCE. NO INTERVAL PROGRESSION OR NEW FINDINGS. TECHNICAL DOCUMENTATION: JOB ID: [id number] [employer]- All Rights Reserved Reading location - IP/workstation name: [email or web address]
== END ==
LOC: RAD 12:31
PROVIDERS: ATTEND Preventive Medicine Undersea and Hyperbaric Medicine
DX: E11.621 Type 2 diabetes mellitus with foot ulcer (principal); L97.522 Non-pressure chronic ulcer of other part of left foot with fat layer exposed; L97.512 Non-pressure chronic ulcer of other part of right foot with fat layer exposed

== ENCOUNTER → 2019-03-19 | Outpatient (CLI) | payer MEDICARE ==
[2019-03-19 10:51] LABS: HEMATOCRIT 27.9 % (36.0-47.0); HEMOGLOBIN 9.3 g/dL (12.0-15.5); MEAN CORPUSCULAR HGB CONC 33.4 g/dL (32.0-36.0); MEAN CORPUSCULAR VOLUME 90 fl (80-97); PLATELET COUNT 366 10^3/uL (150-450); RED CELL DISTRIBUTION WIDTH 13.6 % (11.5-14.0); WHITE BLOOD COUNT 6.4 10^3/uL (4.0-10.5)
--- NOTE | 2019-03-19 11:18 | RADIOLOGY REPORT (SQ) ---
EXAM DESCRIPTION: FOOT BILATERAL 3 VIEWS COMPLETED DATE/TIME: 03/19/2019 10:29 am REASON FOR STUDY: (L97.512)(L97.522)NONPRESSURE CHRONIC ULCER OF OTHER PART OF RIGHT/LEFT MAXIME COMPARISON: 02/21/2019, 12/25/2018, 11/14/2018, 10/18/2018 NUMBER OF VIEWS: Three views. TECHNIQUE: AP, lateral and oblique radiographic images acquired of the right and left foot. LIMITATIONS: None. FINDINGS: RIGHT MINERALIZATION: Normal. BONES: Post remote prior 5th transmetatarsal amputation of the toe. There is chronic appearing bony new growth with diffuse sclerosis of the 5th metatarsal, unchanged from 02/21/2019 and 12/25/2018. JOINTS: No effusions. SOFT TISSUES: Right lateral and plantar foot ulcer with bandages along the 5th metatarsal OTHER: No other significant finding. LEFT MINERALIZATION: Normal. BONES: Since the prior imaging from 02/21/2019, there has been resection of the phalanges of the 2nd to e. Only a small portion of the base 2nd toe proximal phalanx persists. Overlying soft tissue ulcer i s present with radiopaque ointment. JOINTS: No effusions. SOFT TISSUES: No soft tissue swelling. No foreign body. OTHER: No other significant finding. IMPRESSION: Diffuse bony sclerosis along the right 5th metatarsal from healing osteomyelitis. Resection of the 2nd toe phalanges, small portion the base 2nd toe proximal phalanx persists. 2nd to e soft tissue swelling. TECHNICAL DOCUMENTATION: JOB ID: [id number] [employer]- All Rights Reserved Reading location - IP/workstation name: [email or web address]
[2019-03-19 11:58] LABS: ALANINE AMINOTRANSFERASE < 6 U/L (9-52); ALBUMIN 3.7 g/dL (3.5-5.0); ALKALINE PHOSPHATASE 134 U/L (38-126); ANION GAP 13 (5-19); ASPARTATE AMINO TRANSFERASE 13 U/L (14-36); BILIRUBIN,DIRECT 0.2 mg/dL (0.0-0.4); BILIRUBIN,TOTAL 0.2 mg/dL (0.2-1.3); BLOOD UREA NITROGEN 32 mg/dL (7-20); C-REACTIVE PROTEIN 51.8 mg/L (<10.0); CALCIUM 8.8 mg/dL (8.4-10.2); CARBON DIOXIDE 18 mmol/L (22-30); CHLORIDE 104 mmol/L (98-107); GLUCOSE 301 mg/dL (75-110); SODIUM 134.9 mmol/L (137-145); TOTAL PROTEIN 8.3 g/dL (6.3-8.2)
[2019-03-19 12:11] LABS: ERYTHROCYTE SEDIMENTATION RATE > 120 mm/hr (0-30)
[2019-03-19 12:16] LABS: POTASSIUM 6.2 mmol/L (3.6-5.0)
--- NOTE | 2019-03-20 08:30 | Progress Note ---
Provider Note Provider Note: ID Consult Note Pt not seen or examined. Asked to review chart. Ms. Marie is a 58 year old woman followed at the [facility] for multiple bilateral chronic foot wounds involving both 1st toes, R lateral foot, R distal 3rd toe, L lateral heel, L distal 2nd toe. She has had a culture of bone taken from the L 2nd toe on 03/07/19 that grew Pseudomonas aeruginosa (susceptible to fluoroquinolones and antipseudomonal beta-lactams) and MRSA (sensitive to linezolid, rifampin, tetracyclines, Bactrim, vancomycin; resistant to clindamycin). CRP was 74.5 on 02/21 with ESR 105. Imaging of the foot has included plain films that showed sclerosis of the 5th metatarsal bone with periosteal reaction and distal resorpt ion on 02/21. PMH includes diabetes with loss of protective sensation, HTN, HLD, PVD, psoriatic arthritis, CKD with SCr on 02/21 of 2.5. She is 60 kg. 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 The patient was prescribed on 03/14 Bactrim 1 DS BID, rifampin 300 mg BID, and levofloxacin 750 mg daily for 30 days. Most recent chemistries show hyperkalemia. Impression/Recommendations For residual bone infection with Pseudomonas aeruginosa and MRSA with susceptibilites as above, the patient was prescribed effective oral antibiotics. Despite appropriate 50% dose reduction of the Bactrim (typically 8-10 mg/kg trimethoprim component in divided doses assuming normal renal function) for her degree of CKD, she has hyperkalemia that will require stopping Bactrim. Rifampin alone should not be administered - must always have a radio recorder drug to avoid development of resistance. Rifampin should be held unless it is given with a radio recorder drug. PO options for treatment of the patient's MRSA is limited. She can take linezolid PO 600 mg BID plus rifampin, even though cytopenias with linezolid would have to be monitored particularly after 2 weeks duration of treatment, instead of Bactrim. Suggest providing 2 weeks of linezolid then rechecking labs to decide whether to continue. If cost is a limiting factor or cytopenias develop, doxycycline 100 mg BID PO plus rifampin would be an alternative to complete treatment. Kingsley Freitas MD [facility] Infectious Diseases pager [phone]
[2019-03-20 12:27] LABS: ABSOLUTE LYMPHOCYTES# (MANUAL) 0.8 10^3/uL (0.5-4.7); ABSOLUTE MONOCYTES # (MANUAL) 0.1 10^3/uL (0.1-1.4); BAND NEUTROPHILS % (MANUAL) 1 % (3-5); BASOPHILS % (MANUAL) 1 % (0-2); BURR CELLS SLIGHT; EOSINOPHILS % (MANUAL) 0 % (0-6); LYMPHOCYTES % (MANUAL) 13 % (13-45); MONOCYTES % (MANUAL) 1 % (3-13); SEGMENTED NEUTROPHILS % (MAN) 84 % (42-78); TEAR DROP CELLS SLIGHT; TOTAL CELLS COUNTED 100; TOXIC GRANULATION SLIGHT; TOXIC VACUOLATION PRESENT
[2019-03-20 12:28] LABS: PLATELET COMMENT ADEQUATE
== END ==
LOC: RAD 09:53
PROVIDERS: ATTEND Preventive Medicine Undersea and Hyperbaric Medicine
DX: E11.621 Type 2 diabetes mellitus with foot ulcer (principal); L97.512 Non-pressure chronic ulcer of other part of right foot with fat layer exposed; L97.522 Non-pressure chronic ulcer of other part of left foot with fat layer exposed; M86.671 Other chronic osteomyelitis, right ankle and foot
CPT/HCPCS: 36415; 80053; 83036; 85025; 85027; 85652; 86140

== ENCOUNTER → 2019-04-04 | Outpatient (CLI) | payer MEDICARE ==
[2019-04-04 11:58] LABS: ABSOLUTE BASOPHILS # (AUTO) 0.1 10^3/uL (0.0-0.2); ABSOLUTE EOSINOPHILS # (AUTO) 0.3 10^3/uL (0.0-0.6); ABSOLUTE LYMPHOCYTES (AUTO) 2.1 10^3/uL (0.5-4.7); ABSOLUTE MONOCYTES (AUTO) 0.7 10^3/uL (0.1-1.4); ABSOLUTE NEUT (AUTO) 6.3 10^3/uL (1.7-8.2); BASOPHILS % (AUTO) 1.1 % (0-2); EOSINOPHILS % (AUTO) 2.7 % (0-6); HEMATOCRIT 31.1 % (36.0-47.0); HEMOGLOBIN 10.2 g/dL (12.0-15.5); LYMPHOCYTES % (AUTO) 22.3 % (13-45); MEAN CORPUSCULAR HEMOGLOBIN 29.5 pg (27.0-33.4); MEAN CORPUSCULAR HGB CONC 32.8 g/dL (32.0-36.0); MEAN CORPUSCULAR VOLUME 90 fl (80-97); MONOCYTES % (AUTO) 7.7 % (3-13); PLATELET COUNT 270 10^3/uL (150-450); RED BLOOD COUNT 3.46 10^6/uL (3.72-5.28); RED CELL DISTRIBUTION WIDTH 15.2 % (11.5-14.0); SEGMENTED NEUTROPHILS % (AUTO) 66.2 % (42-78); TOTAL CELLS COUNTED % (AUTO) 100 %; WHITE BLOOD COUNT 9.6 10^3/uL (4.0-10.5)
[2019-04-04 12:25] LABS: ALANINE AMINOTRANSFERASE 12 U/L (9-52); ALKALINE PHOSPHATASE 108 U/L (38-126); ANION GAP 12 (5-19); ASPARTATE AMINO TRANSFERASE 16 U/L (14-36); BILIRUBIN,DIRECT 0.3 mg/dL (0.0-0.4); BILIRUBIN,TOTAL 0.3 mg/dL (0.2-1.3); BLOOD UREA NITROGEN 44 mg/dL (7-20); C-REACTIVE PROTEIN 18.8 mg/L (<10.0); CALCIUM 8.8 mg/dL (8.4-10.2); CARBON DIOXIDE 23 mmol/L (22-30); CHLORIDE 107 mmol/L (98-107); GLUCOSE 209 mg/dL (75-110); POTASSIUM 4.7 mmol/L (3.6-5.0); SODIUM 141.7 mmol/L (137-145); TOTAL PROTEIN 7.7 g/dL (6.3-8.2)
[2019-04-04 12:36] LABS: ERYTHROCYTE SEDIMENTATION RATE 113 mm/hr (0-30)
--- NOTE | 2019-04-04 13:24 | RADIOLOGY REPORT (SQ) ---
EXAM DESCRIPTION: FOOT BILATERAL 3 VIEWS COMPLETED DATE/TIME: 04/04/2019 12:21 pm REASON FOR STUDY: L97.512 NON-PRS CHRONIC ULCER OTH PRT RIGHT FOOT W FAT LAYER EXPOSED, L L97.512 N ON-PRS CHRONIC ULCER OTH PRT RIGHT FOOT W FAT LAYER L97.522 NON-PRS CHRONIC ULCER OTH PRT LEFT FOOT W FAT LAYER E11.621 TYPE 2 DIABETES MELLITUS WITH FOOT ULCER COMPARISON: 03/19/2019 NUMBER OF VIEWS: Three views. TECHNIQUE: AP, lateral and oblique radiographic images acquired of the right and left foot. LIMITATIONS: None. FINDINGS: Previously noted changes related to chronic and acute osteomyelitis are stable except poss ible slight progression of lytic change at the base of the proximal phalanx of the 2nd toe IMPRESSION: Possible slight progression of osteomyelitis involving a small portion of residual bone at the base of the proximal phalanx of the 2nd digit of the left foot. TECHNICAL DOCUMENTATION: JOB ID: [id number] [employer]- All Rights Reserved Reading location - IP/workstation name: [email or web address]
== END ==
LOC: WC 11:38
PROVIDERS: ATTEND Preventive Medicine Undersea and Hyperbaric Medicine
DX: E11.621 Type 2 diabetes mellitus with foot ulcer (principal); L97.512 Non-pressure chronic ulcer of other part of right foot with fat layer exposed; L97.522 Non-pressure chronic ulcer of other part of left foot with fat layer exposed
CPT/HCPCS: 36415; 80053; 83036; 85025; 85652; 86140

== ENCOUNTER → 2019-06-05 | Outpatient (CLI) | payer MEDICARE ==
[2019-06-05 13:39] LABS: ABSOLUTE BASOPHILS # (AUTO) 0.1 10^3/uL (0.0-0.2); ABSOLUTE EOSINOPHILS # (AUTO) 0.3 10^3/uL (0.0-0.6); ABSOLUTE LYMPHOCYTES (AUTO) 1.6 10^3/uL (0.5-4.7); ABSOLUTE MONOCYTES (AUTO) 0.8 10^3/uL (0.1-1.4); ABSOLUTE NEUT (AUTO) 4.8 10^3/uL (1.7-8.2); EOSINOPHILS % (AUTO) 4.1 % (0-6); HEMATOCRIT 25.9 % (36.0-47.0); HEMOGLOBIN 8.6 g/dL (12.0-15.5); LYMPHOCYTES % (AUTO) 20.9 % (13-45); MEAN CORPUSCULAR HEMOGLOBIN 29.4 pg (27.0-33.4); MEAN CORPUSCULAR HGB CONC 33.2 g/dL (32.0-36.0); MEAN CORPUSCULAR VOLUME 88 fl (80-97); PLATELET COUNT 399 10^3/uL (150-450); RED BLOOD COUNT 2.93 10^6/uL (3.72-5.28); TOTAL CELLS COUNTED % (AUTO) 100 %; WHITE BLOOD COUNT 7.7 10^3/uL (4.0-10.5)
[2019-06-05 14:06] LABS: ALBUMIN 3.5 g/dL (3.5-5.0); ALKALINE PHOSPHATASE 116 U/L (38-126); ANION GAP 14 (5-19); ASPARTATE AMINO TRANSFERASE 11 U/L (14-36); BILIRUBIN,DIRECT 0.2 mg/dL (0.0-0.4); BILIRUBIN,TOTAL 0.2 mg/dL (0.2-1.3); BLOOD UREA NITROGEN 34 mg/dL (7-20); CALCIUM 8.8 mg/dL (8.4-10.2); CARBON DIOXIDE 19 mmol/L (22-30); CHLORIDE 106 mmol/L (98-107); GLUCOSE 173 mg/dL (75-110); IRON(TIBC) 25.7 ug/dL (37-170); PHOSPHORUS 4.8 mg/dL (2.5-4.5); POTASSIUM 4.9 mmol/L (3.6-5.0); TOTAL PROTEIN 7.1 g/dL (6.3-8.2)
[2019-06-06 11:16] LABS: APPEARANCE,URINE CLOUDY; BILIRUBIN,URINE NEGATIVE (NEGATIVE); COLOR,URINE YELLOW; GLUCOSE, URINE NEGATIVE (NEGATIVE); KETONES,URINE TRACE mg/dL (NEGATIVE); LEUKOCYTE ESTERASE,URINE LARGE (NEGATIVE); NITRITE,URINE NEGATIVE (NEGATIVE); PROTEIN,URINE 100 mg/dL (NEGATIVE); URINE SPECIFIC GRAVITY 1.013; UROBILINOGEN,URINE NEGATIVE mg/dL (<2.0)
== END ==
LOC: LAB 13:20
PROVIDERS: ATTEND Internal Medicine Nephrology
DX: I12.9 Hypertensive chronic kidney disease with stage 1 through stage 4 chronic kidney disease, or unspecified chronic kidney disease (principal); N18.4 Chronic kidney disease, stage 4 (severe); E87.2 Acidosis; N25.0 Renal osteodystrophy
CPT/HCPCS: 36415; 80053; 81001; 82728; 83540; 83550; 83970; 84100; 85025

== ENCOUNTER → 2019-08-01 | Outpatient (CLI) | payer MEDICARE ==
[2019-08-01 10:33] LABS: ABSOLUTE BASOPHILS # (AUTO) 0.1 10^3/uL (0.0-0.2); ABSOLUTE EOSINOPHILS # (AUTO) 0.6 10^3/uL (0.0-0.6); ABSOLUTE LYMPHOCYTES (AUTO) 1.7 10^3/uL (0.5-4.7); ABSOLUTE MONOCYTES (AUTO) 0.7 10^3/uL (0.1-1.4); ABSOLUTE NEUT (AUTO) 4.4 10^3/uL (1.7-8.2); BASOPHILS % (AUTO) 1.7 % (0-2); EOSINOPHILS % (AUTO) 8.2 % (0-6); HEMATOCRIT 33.6 % (36.0-47.0); HEMOGLOBIN 11.2 g/dL (12.0-15.5); LYMPHOCYTES % (AUTO) 22.5 % (13-45); MEAN CORPUSCULAR HEMOGLOBIN 29.5 pg (27.0-33.4); MEAN CORPUSCULAR HGB CONC 33.2 g/dL (32.0-36.0); MEAN CORPUSCULAR VOLUME 89 fl (80-97); PLATELET COUNT 312 10^3/uL (150-450); RED BLOOD COUNT 3.78 10^6/uL (3.72-5.28); RED CELL DISTRIBUTION WIDTH 16.3 % (11.5-14.0); SEGMENTED NEUTROPHILS % (AUTO) 58.6 % (42-78); TOTAL CELLS COUNTED % (AUTO) 100 %; WHITE BLOOD COUNT 7.5 10^3/uL (4.0-10.5)
[2019-08-01 10:44] LABS: APPEARANCE,URINE CLOUDY; BILIRUBIN,URINE NEGATIVE (NEGATIVE); COLOR,URINE YELLOW; GLUCOSE, URINE NEGATIVE (NEGATIVE); KETONES,URINE NEGATIVE (NEGATIVE); LEUKOCYTE ESTERASE,URINE LARGE (NEGATIVE); NITRITE,URINE NEGATIVE (NEGATIVE); PROTEIN,URINE 100 mg/dL (NEGATIVE); URINE SPECIFIC GRAVITY 1.017; UROBILINOGEN,URINE NEGATIVE mg/dL (<2.0)
[2019-08-01 10:49] LABS: ANION GAP 14 (5-19); BLOOD UREA NITROGEN 37 mg/dL (7-20); CALCIUM 9.8 mg/dL (8.4-10.2); CARBON DIOXIDE 21 mmol/L (22-30); CHLORIDE 108 mmol/L (98-107); GLUCOSE 96 mg/dL (75-110); IRON(TIBC) 86.8 ug/dL (37-170); POTASSIUM 5.9 mmol/L (3.6-5.0)
== END ==
LOC: LAB 09:58
PROVIDERS: ATTEND Internal Medicine Nephrology
DX: I12.9 Hypertensive chronic kidney disease with stage 1 through stage 4 chronic kidney disease, or unspecified chronic kidney disease (principal); N18.4 Chronic kidney disease, stage 4 (severe); E11.22 Type 2 diabetes mellitus with diabetic chronic kidney disease; D63.1 Anemia in chronic kidney disease; R80.9 Proteinuria, unspecified; E87.5 Hyperkalemia
CPT/HCPCS: 36415; 80048; 81001; 82728; 83540; 83550; 84100; 85025

== ENCOUNTER → 2019-08-05 | Outpatient (CLI) | payer MEDICARE | LOC: OD 13:58 | PROVIDERS: ATTEND Internal Medicine Nephrology | DX: N18.4 Chronic kidney disease, stage 4 (severe) (principal) | CPT/HCPCS: 36415; 83970; 84132 ==

== ENCOUNTER → 2019-09-24 | Outpatient (CLI) | payer MEDICARE ==
--- NOTE | 2019-09-24 14:01 | RADIOLOGY REPORT (SQ) ---
EXAM DESCRIPTION: FOOT BILATERAL 3 VIEWS COMPLETED DATE/TIME: 09/24/2019 1:37 pm REASON FOR STUDY: L97.512 : NON-PRESSURE CHRONIC ULCER OF OTHER PART OF RIGHT FOOT WITH FAT L COMPARISON: 04/04/2019 NUMBER OF VIEWS: Three views. TECHNIQUE: AP, lateral and oblique radiographic images acquired of the right and left foot. LIMITATIONS: None. FINDINGS: LEFT FOOT: MINERALIZATION: Normal. BONES: There is a new amputation of the 1st digit and 1st metatarsal. There is amputation of the 2nd digit from the base of the proximal phalanx. There is no evidence of osteomyelitis. JOINTS: No effusions. SOFT TISSUES: No soft tissue swelling. No foreign body. OTHER: No other significant finding. RIGHT FOOT: MINERALIZATION: Normal. BONES: Amputation of the 5th digit from the mid aspect of the 5th metatarsal. There is sclerosis of the remaining portion of the 5th metatarsal. This is unchanged. There are no acute findings. No ev idence of acute osteomyelitis. JOINTS: No effusions. SOFT TISSUES: No soft tissue swelling. No foreign body. OTHER: No other significant finding. IMPRESSION: Surgical changes in each foot as described. No evidence of osteomyelitis acutely. Heal ed osteomyelitis of the right 5th metatarsal by history. TECHNICAL DOCUMENTATION: JOB ID: [id number] [employer]- All Rights Reserved Reading location - IP/workstation name: [email or web address]
[2019-09-24 14:11] LABS: ABSOLUTE BASOPHILS # (AUTO) 0.1 10^3/uL (0.0-0.2); ABSOLUTE EOSINOPHILS # (AUTO) 0.2 10^3/uL (0.0-0.6); ABSOLUTE LYMPHOCYTES (AUTO) 1.5 10^3/uL (0.5-4.7); ABSOLUTE MONOCYTES (AUTO) 0.5 10^3/uL (0.1-1.4); ABSOLUTE NEUT (AUTO) 4.9 10^3/uL (1.7-8.2); BASOPHILS % (AUTO) 1.3 % (0-2); EOSINOPHILS % (AUTO) 2.5 % (0-6); HEMATOCRIT 27.1 % (36.0-47.0); HEMOGLOBIN 9.1 g/dL (12.0-15.5); LYMPHOCYTES % (AUTO) 20.7 % (13-45); MEAN CORPUSCULAR HEMOGLOBIN 30.1 pg (27.0-33.4); MEAN CORPUSCULAR HGB CONC 33.7 g/dL (32.0-36.0); MEAN CORPUSCULAR VOLUME 90 fl (80-97); MONOCYTES % (AUTO) 7.5 % (3-13); PLATELET COUNT 315 10^3/uL (150-450); RED BLOOD COUNT 3.03 10^6/uL (3.72-5.28); RED CELL DISTRIBUTION WIDTH 14.7 % (11.5-14.0); TOTAL CELLS COUNTED % (AUTO) 100 %; WHITE BLOOD COUNT 7.3 10^3/uL (4.0-10.5)
[2019-09-24 14:36] LABS: ALBUMIN 3.9 g/dL (3.5-5.0); ALKALINE PHOSPHATASE 94 U/L (38-126); ANION GAP 11 (5-19); ASPARTATE AMINO TRANSFERASE 18 U/L (14-36); BILIRUBIN,DIRECT 0.3 mg/dL (0.0-0.4); BILIRUBIN,TOTAL 0.3 mg/dL (0.2-1.3); BLOOD UREA NITROGEN 40 mg/dL (7-20); C-REACTIVE PROTEIN 23.2 mg/L (<10.0); CARBON DIOXIDE 22 mmol/L (22-30); CHLORIDE 107 mmol/L (98-107); GLUCOSE 145 mg/dL (75-110); POTASSIUM 5.5 mmol/L (3.6-5.0); TOTAL PROTEIN 8.5 g/dL (6.3-8.2)
[2019-09-24 14:52] LABS: ERYTHROCYTE SEDIMENTATION RATE 120 mm/hr (0-30)
[2019-09-25 17:34] LABS: IRON(TIBC) 53.5 ug/dL (37-170)
== END ==
LOC: RAD 13:09
PROVIDERS: ATTEND Preventive Medicine Undersea and Hyperbaric Medicine
DX: E11.621 Type 2 diabetes mellitus with foot ulcer (principal); L97.512 Non-pressure chronic ulcer of other part of right foot with fat layer exposed; L97.522 Non-pressure chronic ulcer of other part of left foot with fat layer exposed
CPT/HCPCS: 36415; 80053; 82728; 83540; 83550; 85025; 85652; 86140

== ENCOUNTER → 2019-09-27 | Outpatient (CLI) | payer MEDICARE | LOC: OD 11:00 | PROVIDERS: ATTEND Physician Assistant Medical | DX: N18.4 Chronic kidney disease, stage 4 (severe) (principal); E87.5 Hyperkalemia | CPT/HCPCS: 36415; 84132 ==

== ENCOUNTER → 2019-10-03 | Outpatient (CLI) | payer MEDICARE ==
[2019-10-03 10:44] LABS: ABSOLUTE BASOPHILS # (AUTO) 0.1 10^3/uL (0.0-0.2); ABSOLUTE EOSINOPHILS # (AUTO) 0.4 10^3/uL (0.0-0.6); ABSOLUTE LYMPHOCYTES (AUTO) 1.8 10^3/uL (0.5-4.7); ABSOLUTE MONOCYTES (AUTO) 0.6 10^3/uL (0.1-1.4); ABSOLUTE NEUT (AUTO) 4.2 10^3/uL (1.7-8.2); BASOPHILS % (AUTO) 1.8 % (0-2); EOSINOPHILS % (AUTO) 5.3 % (0-6); HEMATOCRIT 28.8 % (36.0-47.0); HEMOGLOBIN 9.7 g/dL (12.0-15.5); LYMPHOCYTES % (AUTO) 25.2 % (13-45); MEAN CORPUSCULAR HEMOGLOBIN 29.2 pg (27.0-33.4); MEAN CORPUSCULAR HGB CONC 33.6 g/dL (32.0-36.0); MEAN CORPUSCULAR VOLUME 87 fl (80-97); MONOCYTES % (AUTO) 8.7 % (3-13); PLATELET COUNT 392 10^3/uL (150-450); RED BLOOD COUNT 3.31 10^6/uL (3.72-5.28); RED CELL DISTRIBUTION WIDTH 14.4 % (11.5-14.0); TOTAL CELLS COUNTED % (AUTO) 100 %; WHITE BLOOD COUNT 7.1 10^3/uL (4.0-10.5)
[2019-10-03 11:17] LABS: ANION GAP 17 (5-19); BLOOD UREA NITROGEN 38 mg/dL (7-20); CALCIUM 9.1 mg/dL (8.4-10.2); CARBON DIOXIDE 18 mmol/L (22-30); CHLORIDE 105 mmol/L (98-107); GLUCOSE 92 mg/dL (75-110); PHOSPHORUS 5.6 mg/dL (2.5-4.5); POTASSIUM 5.5 mmol/L (3.6-5.0)
[2019-10-03 14:58] LABS: APPEARANCE,URINE SLIGHTLY-CLOUDY; BILIRUBIN,URINE NEGATIVE (NEGATIVE); COLOR,URINE YELLOW; GLUCOSE, URINE 50 mg/dL (NEGATIVE); KETONES,URINE NEGATIVE (NEGATIVE); LEUKOCYTE ESTERASE,URINE NEGATIVE (NEGATIVE); NITRITE,URINE NEGATIVE (NEGATIVE); PROTEIN,URINE 100 mg/dL (NEGATIVE); URINE SPECIFIC GRAVITY 1.014; UROBILINOGEN,URINE NEGATIVE mg/dL (<2.0)
[2019-10-03 15:37] LABS: URINE CREATININE 72.5 mg/dL (15-278)
[2019-10-03 15:54] LABS: UR PRO/CREAT RATIO RESULT 3.7 mg/mg (0.0-0.2); URINE PROTEIN 270.8 mg/dL (<12)
== END ==
LOC: OD 10:06
PROVIDERS: ATTEND Internal Medicine Nephrology
DX: I12.9 Hypertensive chronic kidney disease with stage 1 through stage 4 chronic kidney disease, or unspecified chronic kidney disease (principal); N18.4 Chronic kidney disease, stage 4 (severe); E11.22 Type 2 diabetes mellitus with diabetic chronic kidney disease; D63.1 Anemia in chronic kidney disease; N25.0 Renal osteodystrophy; E87.2 Acidosis
CPT/HCPCS: 36415; 80048; 81001; 82570; 83970; 84100; 84156; 85025

== ENCOUNTER → 2019-10-07 | Outpatient (CLI) | payer MEDICARE | LOC: OD 14:43 | PROVIDERS: ATTEND Internal Medicine Nephrology | DX: N18.4 Chronic kidney disease, stage 4 (severe) (principal); E87.5 Hyperkalemia | CPT/HCPCS: 36415; 84132 ==

== ENCOUNTER → 2019-10-25 | Outpatient (CLI) | payer MEDICARE ==
--- NOTE | 2019-10-25 10:47 | RADIOLOGY REPORT (SQ) ---
EXAM DESCRIPTION: CHEST 2 VIEWS COMPLETED DATE/TIME: 10/25/2019 10:22 am REASON FOR STUDY: PNEUMOTHORAX, UNSPECIFIED COMPARISON: 09/29/2018 EXAM PARAMETERS: NUMBER OF VIEWS: two views TECHNIQUE: Digital Frontal and Lateral radiographic views of the chest acquired. RADIATION DOSE: NA LIMITATIONS: none FINDINGS: LUNGS AND PLEURA: No opacities, masses or pneumothorax. No pleural effusion. Emphysematou s change with increased AP diameter. 1 cm nodular opacity left mid lung. MEDIASTINUM AND HILAR STRUCTURES: No masses or contour abnormalities. HEART AND VASCULAR STRUCTURES: Heart normal size. No evidence for failure. BONES: No acute findings. HARDWARE: Partially visualized humeral hardware on the right. OTHER: No other significant finding. IMPRESSION: 1. 1 cm nodular opacity within the left mid lung. Recommend CT for further characteriz ation. 2. No other evidence of acute intrathoracic process. TECHNICAL DOCUMENTATION: JOB ID: [id number] [employer]- All Rights Reserved Reading location - IP/workstation name: [email or web address]
== END ==
LOC: RAD 09:59
PROVIDERS: ATTEND Preventive Medicine Undersea and Hyperbaric Medicine
DX: J93.9 Pneumothorax, unspecified (principal)
CPT/HCPCS: 71046

== ENCOUNTER → 2019-12-02 | Outpatient (CLI) | payer MEDICARE ==
[2019-12-02 13:12] LABS: ABSOLUTE BASOPHILS # (AUTO) 0.1 10^3/uL (0.0-0.2); ABSOLUTE EOSINOPHILS # (AUTO) 0.2 10^3/uL (0.0-0.6); ABSOLUTE LYMPHOCYTES (AUTO) 1.2 10^3/uL (0.5-4.7); ABSOLUTE MONOCYTES (AUTO) 0.7 10^3/uL (0.1-1.4); ABSOLUTE NEUT (AUTO) 6.9 10^3/uL (1.7-8.2); BASOPHILS % (AUTO) 0.9 % (0-2); HEMATOCRIT 26.8 % (36.0-47.0); HEMOGLOBIN 8.8 g/dL (12.0-15.5); LYMPHOCYTES % (AUTO) 12.9 % (13-45); MEAN CORPUSCULAR HEMOGLOBIN 29.2 pg (27.0-33.4); MEAN CORPUSCULAR HGB CONC 32.9 g/dL (32.0-36.0); MEAN CORPUSCULAR VOLUME 89 fl (80-97); MONOCYTES % (AUTO) 7.5 % (3-13); PLATELET COUNT 369 10^3/uL (150-450); RED BLOOD COUNT 3.02 10^6/uL (3.72-5.28); RED CELL DISTRIBUTION WIDTH 15.9 % (11.5-14.0); SEGMENTED NEUTROPHILS % (AUTO) 76.7 % (42-78); TOTAL CELLS COUNTED % (AUTO) 100 %; WHITE BLOOD COUNT 8.9 10^3/uL (4.0-10.5)
[2019-12-02 13:32] LABS: ANION GAP 12 (5-19); BLOOD UREA NITROGEN 46 mg/dL (7-20); CALCIUM 9.1 mg/dL (8.4-10.2); CARBON DIOXIDE 16 mmol/L (22-30); CHLORIDE 110 mmol/L (98-107); GLUCOSE 175 mg/dL (75-110); IRON(TIBC) 24.4 ug/dL (37-170); PHOSPHORUS 6.4 mg/dL (2.5-4.5)
[2019-12-02 14:30] LABS: POTASSIUM 6.2 mmol/L (3.6-5.0)
[2019-12-03 14:31] LABS: APPEARANCE,URINE CLEAR; BILIRUBIN,URINE NEGATIVE (NEGATIVE); COLOR,URINE STRAW; GLUCOSE, URINE 50 mg/dL (NEGATIVE); KETONES,URINE NEGATIVE (NEGATIVE); LEUKOCYTE ESTERASE,URINE NEGATIVE (NEGATIVE); NITRITE,URINE NEGATIVE (NEGATIVE); PROTEIN,URINE 100 mg/dL (NEGATIVE); URINE SPECIFIC GRAVITY 1.014; UROBILINOGEN,URINE NEGATIVE mg/dL (<2.0)
[2019-12-03 14:58] LABS: UR PRO/CREAT RATIO RESULT 2.6 mg/mg (0.0-0.2); URINE CREATININE 43.6 mg/dL (15-278)
== END ==
LOC: OD 12:21
PROVIDERS: ATTEND Internal Medicine Nephrology
DX: E11.22 Type 2 diabetes mellitus with diabetic chronic kidney disease (principal); I12.9 Hypertensive chronic kidney disease with stage 1 through stage 4 chronic kidney disease, or unspecified chronic kidney disease; N18.4 Chronic kidney disease, stage 4 (severe); D50.9 Iron deficiency anemia, unspecified; N25.0 Renal osteodystrophy; E87.2 Acidosis
CPT/HCPCS: 36415; 80048; 81001; 82570; 82728; 83540; 83550; 83970; 84100; 84132; 84156; 85025

== ENCOUNTER → 2019-12-02 | Outpatient (CLI) | payer MEDICARE ==
[2019-12-02 13:06] LABS: ABSOLUTE BASOPHILS # (AUTO) 0.1 10^3/uL (0.0-0.2); ABSOLUTE EOSINOPHILS # (AUTO) 0.2 10^3/uL (0.0-0.6); ABSOLUTE LYMPHOCYTES (AUTO) 1.2 10^3/uL (0.5-4.7); ABSOLUTE MONOCYTES (AUTO) 0.7 10^3/uL (0.1-1.4); ABSOLUTE NEUT (AUTO) 6.9 10^3/uL (1.7-8.2); BASOPHILS % (AUTO) 0.9 % (0-2); HEMATOCRIT 26.8 % (36.0-47.0); HEMOGLOBIN 8.8 g/dL (12.0-15.5); LYMPHOCYTES % (AUTO) 12.9 % (13-45); MEAN CORPUSCULAR HEMOGLOBIN 29.2 pg (27.0-33.4); MEAN CORPUSCULAR HGB CONC 32.9 g/dL (32.0-36.0); MEAN CORPUSCULAR VOLUME 89 fl (80-97); MONOCYTES % (AUTO) 7.5 % (3-13); PLATELET COUNT 369 10^3/uL (150-450); RED BLOOD COUNT 3.02 10^6/uL (3.72-5.28); RED CELL DISTRIBUTION WIDTH 15.9 % (11.5-14.0); SEGMENTED NEUTROPHILS % (AUTO) 76.7 % (42-78); TOTAL CELLS COUNTED % (AUTO) 100 %; WHITE BLOOD COUNT 8.9 10^3/uL (4.0-10.5)
[2019-12-02 13:39] LABS: ALBUMIN 3.8 g/dL (3.5-5.0); ALKALINE PHOSPHATASE 105 U/L (38-126); ANION GAP 13 (5-19); ASPARTATE AMINO TRANSFERASE 14 U/L (14-36); BILIRUBIN,DIRECT 0.1 mg/dL (0.0-0.4); BILIRUBIN,TOTAL 0.3 mg/dL (0.2-1.3); BLOOD UREA NITROGEN 43 mg/dL (7-20); C-REACTIVE PROTEIN 50.4 mg/L (<10.0); CALCIUM 8.9 mg/dL (8.4-10.2); CARBON DIOXIDE 15 mmol/L (22-30); CHLORIDE 110 mmol/L (98-107); GLUCOSE 174 mg/dL (75-110); TOTAL PROTEIN 8.1 g/dL (6.3-8.2)
[2019-12-02 13:54] LABS: POTASSIUM 6.2 mmol/L (3.6-5.0)
--- NOTE | 2019-12-02 14:01 | RADIOLOGY REPORT (SQ) ---
EXAM DESCRIPTION: FOOT RIGHT COMPLETE COMPLETED DATE/TIME: 12/02/2019 1:05 pm REASON FOR STUDY: . L97.512 NON-PRS CHRONIC ULCER OTH PRT RIGHT FOOT W FAT LAYER L97.522 NON-PRS C HRONIC ULCER OTH PRT LEFT FOOT W FAT LAYER E11.621 TYPE 2 DIABETES MELLITUS WITH FOOT ULCER COMPARISON: 09/24/2019 NUMBER OF VIEWS: Three views. TECHNIQUE: AP, lateral and oblique radiographic images acquired of the right foot. LIMITATIONS: None. FINDINGS: MINERALIZATION: Persistent sclerosis involving the remaining 5th metatarsal. BONES: No acute fracture dislocation. Prior amputation of the distal 5th toe. Chronic changes in th e 5th metatarsal. No conventional radiographic evidence of acute osteomyelitis. JOINTS: No effusions. SOFT TISSUES: Soft tissue swelling dorsally. OTHER: No other significant finding. IMPRESSION: Postsurgical, and degenerative changes. No conventional radiographic evidence of acute osteomyelitis. TECHNICAL DOCUMENTATION: JOB ID: [id number] 2010 [employer]- All Rights Reserved Reading location - IP/workstation name: [email or web address]
--- NOTE | 2019-12-02 14:03 | RADIOLOGY REPORT (SQ) ---
EXAM DESCRIPTION: FOOT LEFT COMPLETE COMPLETED DATE/TIME: 12/02/2019 1:05 pm REASON FOR STUDY: TYPE 2 DIABETES MELLITUS WITH FOOT ULCER L97.512 NON-PRS CHRONIC ULCER OTH PRT RI GHT FOOT W FAT LAYER L97.522 NON-PRS CHRONIC ULCER OTH PRT LEFT FOOT W FAT LAYER E11.621 TYPE 2 DI ABETES MELLITUS WITH FOOT ULCER COMPARISON: 09/24/2019 NUMBER OF VIEWS: Three views. TECHNIQUE: AP, lateral and oblique without weight bearing radiographic images acquired of the left f oot. LIMITATIONS: None. FINDINGS: MINERALIZATION: Normal. BONES: Postsurgical changes with prior amputation of the 1st tarsal metatarsal joint. Prior amputati on of the 2nd digit just distal to the metatarsal phalangeal joint. No acute evidence of osteomyelit is. JOINTS: No erosions. No miguel ángel-articular osteopenia. No chondrocalcinosis. SOFT TISSUES: No swelling. No calcifications. OTHER: No other significant finding. IMPRESSION: Postsurgical and degenerative changes. No conventional radiographic evidence of acute o steomyelitis. TECHNICAL DOCUMENTATION: JOB ID: [id number] 2010 [employer]- All Rights Reserved Reading location - IP/workstation name: [email or web address]
[2019-12-02 14:31] LABS: ERYTHROCYTE SEDIMENTATION RATE > 120 mm/hr (0-30)
== END ==
LOC: OD 12:25
PROVIDERS: ATTEND Preventive Medicine Undersea and Hyperbaric Medicine
DX: E11.621 Type 2 diabetes mellitus with foot ulcer (principal); L97.512 Non-pressure chronic ulcer of other part of right foot with fat layer exposed; L97.522 Non-pressure chronic ulcer of other part of left foot with fat layer exposed
CPT/HCPCS: 36415; 83036; 85652; 86140; 87070

== ENCOUNTER → 2019-12-04 | Outpatient (CLI) | payer MEDICARE | LOC: OD 12:27 | PROVIDERS: ATTEND Internal Medicine Nephrology | DX: E87.5 Hyperkalemia (principal) | CPT/HCPCS: 36415; 84132 ==

== ENCOUNTER 2019-12-06 12:24 | Outpatient (CLI) | payer MEDICARE ==
[2019-12-06 12:55] VITALS: BP 179/70
== END 2019-12-06 13:43 | disposition home or self-care (01) ==
LOC: II 12:24 → 5TH 13:06 → II 13:43
PROVIDERS: ATTEND Internal Medicine Nephrology
DX: D50.8 Other iron deficiency anemias (principal)
CPT/HCPCS: 96365; J7050; J1439

== ENCOUNTER → 2019-12-09 | Outpatient (CLI) | payer MEDICARE | LOC: OD 16:13 | PROVIDERS: ATTEND Internal Medicine Nephrology | DX: E87.5 Hyperkalemia (principal) | CPT/HCPCS: 36415; 84132 ==

== ENCOUNTER 2019-12-13 12:49 | Outpatient (CLI) | payer MEDICARE ==
[2019-12-13 13:01] VITALS: BP 144/52
== END 2019-12-13 14:06 | disposition home or self-care (01) ==
LOC: II 12:49 → 5TH 12:53 → II 14:06
PROVIDERS: ATTEND Internal Medicine Nephrology
DX: D50.8 Other iron deficiency anemias (principal)
CPT/HCPCS: 96365; J7050; J1439

== ENCOUNTER → 2019-12-16 | Outpatient (CLI) | payer MEDICARE | LOC: OD 15:15 | PROVIDERS: ATTEND Internal Medicine Nephrology | DX: E87.5 Hyperkalemia (principal) | CPT/HCPCS: 36415; 84132 ==

== ENCOUNTER → 2019-12-23 | Outpatient (CLI) | payer MEDICARE | LOC: OD 13:59 | PROVIDERS: ATTEND Internal Medicine Nephrology | DX: E87.5 Hyperkalemia (principal) | CPT/HCPCS: 36415; 84132 ==

== ENCOUNTER → 2020-01-23 | Outpatient (CLI) | payer MEDICARE ==
[2020-01-23 14:55] LABS: HEMATOCRIT 35.2 % (36.0-47.0); HEMOGLOBIN 11.6 g/dL (12.0-15.5); MEAN CORPUSCULAR HEMOGLOBIN 30.2 pg (27.0-33.4); MEAN CORPUSCULAR VOLUME 92 fl (80-97); RED BLOOD COUNT 3.85 10^6/uL (3.72-5.28); RED CELL DISTRIBUTION WIDTH 16.7 % (11.5-14.0); WHITE BLOOD COUNT 11.8 10^3/uL (4.0-10.5)
[2020-01-23 15:11] LABS: ABSOLUTE LYMPHOCYTES# (MANUAL) 2.6 10^3/uL (0.5-4.7); ABSOLUTE MONOCYTES # (MANUAL) 0.6 10^3/uL (0.1-1.4); BAND NEUTROPHILS % (MANUAL) 2 % (3-5); BASOPHILS % (MANUAL) 0 % (0-2); EOSINOPHILS % (MANUAL) 7 % (0-6); LYMPHOCYTES % (MANUAL) 21 % (13-45); MONOCYTES % (MANUAL) 5 % (3-13); SEGMENTED NEUTROPHILS % (MAN) 64 % (42-78); TOTAL CELLS COUNTED 100
[2020-01-23 15:13] LABS: ANISOCYTOSIS 1+; PLATELET CLUMPS PRESENT
[2020-01-23 15:14] LABS: PLATELET COMMENT INCREASED
[2020-01-23 15:15] LABS: HYPERSEGMENTED NEUTROPHILS PRESENT
[2020-01-23 15:16] LABS: OVALOCYTES SLIGHT; POIKILOCYTOSIS SLIGHT
[2020-01-23 15:17] LABS: PLATELET COUNT 457 10^3/uL (150-450)
[2020-01-23 15:21] LABS: ALBUMIN 4.2 g/dL (3.5-5.0); ALKALINE PHOSPHATASE 119 U/L (38-126); ANION GAP 15 (5-19); ASPARTATE AMINO TRANSFERASE 27 U/L (14-36); BILIRUBIN,DIRECT 0.1 mg/dL (0.0-0.4); BILIRUBIN,TOTAL 0.4 mg/dL (0.2-1.3); BLOOD UREA NITROGEN 35 mg/dL (7-20); CALCIUM 9.3 mg/dL (8.4-10.2); CARBON DIOXIDE 17 mmol/L (22-30); CHLORIDE 105 mmol/L (98-107); GLUCOSE 100 mg/dL (75-110); IRON(TIBC) 65.1 ug/dL (37-170); PHOSPHORUS 5.1 mg/dL (2.5-4.5); TOTAL PROTEIN 9.3 g/dL (6.3-8.2)
== END ==
LOC: OD 14:28
PROVIDERS: ATTEND Internal Medicine Nephrology
DX: I12.9 Hypertensive chronic kidney disease with stage 1 through stage 4 chronic kidney disease, or unspecified chronic kidney disease (principal); N18.4 Chronic kidney disease, stage 4 (severe); E11.22 Type 2 diabetes mellitus with diabetic chronic kidney disease; E87.5 Hyperkalemia; E87.2 Acidosis; D64.9 Anemia, unspecified; N25.0 Renal osteodystrophy
CPT/HCPCS: 36415; 80053; 82728; 83540; 83550; 83735; 83970; 84100; 85025

== ENCOUNTER → 2020-01-28 | Outpatient (CLI) | payer MEDICARE ==
[2020-01-28 12:45] LABS: ABSOLUTE BASOPHILS # (AUTO) 0.1 10^3/uL (0.0-0.2); ABSOLUTE EOSINOPHILS # (AUTO) 0.4 10^3/uL (0.0-0.6); ABSOLUTE LYMPHOCYTES (AUTO) 1.3 10^3/uL (0.5-4.7); ABSOLUTE MONOCYTES (AUTO) 0.6 10^3/uL (0.1-1.4); ABSOLUTE NEUT (AUTO) 3.6 10^3/uL (1.7-8.2); BASOPHILS % (AUTO) 1.1 % (0-2); EOSINOPHILS % (AUTO) 6.2 % (0-6); HEMATOCRIT 29.3 % (36.0-47.0); MEAN CORPUSCULAR HEMOGLOBIN 31.3 pg (27.0-33.4); MEAN CORPUSCULAR VOLUME 92 fl (80-97); MONOCYTES % (AUTO) 10.1 % (3-13); PLATELET COUNT 370 10^3/uL (150-450); RED BLOOD COUNT 3.19 10^6/uL (3.72-5.28); RED CELL DISTRIBUTION WIDTH 17.3 % (11.5-14.0); SEGMENTED NEUTROPHILS % (AUTO) 60.6 % (42-78); TOTAL CELLS COUNTED % (AUTO) 100 %; WHITE BLOOD COUNT 5.9 10^3/uL (4.0-10.5)
[2020-01-28 13:05] LABS: ALBUMIN 3.7 g/dL (3.5-5.0); ALKALINE PHOSPHATASE 103 U/L (38-126); ANION GAP 11 (5-19); ASPARTATE AMINO TRANSFERASE 15 U/L (14-36); BILIRUBIN,DIRECT 0.1 mg/dL (0.0-0.4); BILIRUBIN,TOTAL 0.3 mg/dL (0.2-1.3); BLOOD UREA NITROGEN 47 mg/dL (7-20); C-REACTIVE PROTEIN 66.8 mg/L (<10.0); CALCIUM 8.9 mg/dL (8.4-10.2); CARBON DIOXIDE 21 mmol/L (22-30); CHLORIDE 106 mmol/L (98-107); GLUCOSE 154 mg/dL (75-110); TOTAL PROTEIN 8.2 g/dL (6.3-8.2)
[2020-01-28 14:09] LABS: ERYTHROCYTE SEDIMENTATION RATE 114 mm/hr (0-30)
--- NOTE | 2020-01-28 15:11 | RADIOLOGY REPORT (SQ) ---
EXAM DESCRIPTION: FOOT RIGHT COMPLETE IMAGES COMPLETED DATE/TIME: 01/28/2020 2:55 pm REASON FOR STUDY: NON PRESSURE CHRONIC ULCER OF OTHER PART OF RT/LT FOOT L97.512 NON-PRS CHRONIC UL CER OTH PRT RIGHT FOOT W FAT LAYER L97.522 NON-PRS CHRONIC ULCER OTH PRT LEFT FOOT W FAT LAYER E11. 621 TYPE 2 DIABETES MELLITUS WITH FOOT ULCER COMPARISON: 12/02/2019 NUMBER OF VIEWS: Three views. TECHNIQUE: AP, lateral and oblique radiographic images acquired of the right foot. LIMITATIONS: None. FINDINGS: MINERALIZATION: Normal. BONES: Coroner sclerotic changes involving the remaining 5th metatarsal. There is lucency involvin g the mid and distal phalanx of the 4th digit this appears to have progressed since prior study. Act chun osteomyelitis cannot be excluded. JOINTS: No effusions. SOFT TISSUES: No soft tissue swelling. No foreign body. OTHER: No other significant finding. IMPRESSION: 1. Stable sclerotic changes involving remaining aspect of the 5th metatarsal. 2. Lucency involving the mid and distal phalanges of the 4th digit. Osteomyelitis cannot be exclude d. TECHNICAL DOCUMENTATION: JOB ID: [id number] [employer]- All Rights Reserved Reading location - IP/workstation name: [email or web address]
--- NOTE | 2020-01-28 15:13 | RADIOLOGY REPORT (SQ) ---
EXAM DESCRIPTION: FOOT LEFT COMPLETE IMAGES COMPLETED DATE/TIME: 01/28/2020 2:55 pm REASON FOR STUDY: NON PRESSURE CHRONIC ULCER OF OTHER PART OF RT/LT FOOT L97.512 NON-PRS CHRONIC UL CER OTH PRT RIGHT FOOT W FAT LAYER L97.522 NON-PRS CHRONIC ULCER OTH PRT LEFT FOOT W FAT LAYER E11. 621 TYPE 2 DIABETES MELLITUS WITH FOOT ULCER COMPARISON: 12/02/2019 NUMBER OF VIEWS: Three views. TECHNIQUE: AP, lateral and oblique radiographic images acquired of the left foot. LIMITATIONS: None. FINDINGS: MINERALIZATION: Normal. BONES: Postsurgical changes are again noted. No conventional radiographic evidence of osteomyelitis. JOINTS: No effusions. SOFT TISSUES: No soft tissue swelling. No foreign body. OTHER: No other significant finding. IMPRESSION: Stable appearance of the left foot. No evidence of active osteomyelitis. TECHNICAL DOCUMENTATION: JOB ID: [id number] 2010 [employer]- All Rights Reserved Reading location - IP/workstation name: [email or web address]
== END ==
LOC: WC 11:22
PROVIDERS: ATTEND Preventive Medicine Undersea and Hyperbaric Medicine
DX: E11.621 Type 2 diabetes mellitus with foot ulcer (principal); L97.512 Non-pressure chronic ulcer of other part of right foot with fat layer exposed; L97.522 Non-pressure chronic ulcer of other part of left foot with fat layer exposed
CPT/HCPCS: 36415; 80053; 85025; 85652; 86140